=== PATIENT | male | born 1955 | race Caucasian/White ===

== ENCOUNTER 2022-02-13 15:36 | Outpatient (REF) | payer MEDICARE, BC, SELFPAY ==
[2022-02-13 17:13] LABS: SARS PCR* Negative SARS-CoV-2 (Negative)
== END 2022-02-13 15:37 | disposition home or self-care (01) ==
LOC: NPINS 15:36
PROVIDERS: PCP Physician Assistant; Visit Provider Ophthalmology
DX: Z11.52 Encounter for screening for COVID-19 (principal)
CPT/HCPCS: 87635

== ENCOUNTER 2022-02-15 10:09 | Day surgery (SDC) | payer MEDICARE, BC, SELFPAY ==
[2022-02-15 10:37] VITALS: BP 154/92; PULSE 112; RESP 16; TEMP 36.6; O2SAT 92; BMI 31.1
[2022-02-15] MEDS: KETOROLAC OPHTH 0.5% 1 DROP EYE-LEFT ×3 (10:45→11:00)
[2022-02-15] MEDS: TETRACAINE 0.5% OPHTH 1 DROP EYE-LEFT (10:45)
[2022-02-15] MEDS: SODIUM CHLORIDE 0.9 % (FLUSH) 10 ML SYRINGE IVF (11:00)
[2022-02-15] MEDS: TETRACAINE 0.5% OPHTH 2 DROP EYE-LEFT (11:53)
[2022-02-15] MEDS: BALANCED SALT IRRIG SOLN 15 ML EYE-LEFT (11:53)
[2022-02-15] MEDS: BRIMONIDINE TARTRATE 0.2% OPHTH 1 DROP EYE-LEFT (12:13)
--- NOTE | 2022-02-15 12:20 | W.ANESCHARGE ---
Anesthesia Charges Start Date/Time Anesthesia Start Date: 02/15/22 Anesthesia Start Time: 11:45 Stop Date/Time Anesthesia Stop Date: 02/15/22 Anesthesia Stop Time: 12:19 Summary Emergency: No
--- NOTE | 2022-02-15 12:25 | PM.PROC ---
Procedure Note Date Seen: 02/15/22 Will [facility] bill your pro fee for this procedure?: No Procedure: NAME OF PROCEDURE Petar phacoemulsification, right eye, with posterior chamber lens implant. PREOPERATIVE DIAGNOSIS Nuclear sclerotic cortical combined cataract, right eye. POSTOPERATIVE DIAGNOSIS Nuclear sclerotic cortical combined cataract, right eye. INDICATIONS FOR PROCEDURE The patient has noted that his vision in the right eye is failing. Severity 7/10. Unable to correct with glasses/contact lenses; has disabling night glare when driving, difficulty reading. Because of this, the patient elected to proceed with surgical repair. I have explained the risks, benefits, alternative treatments to the patient including possible loss of the eye under correction, over correction, need for more surgery. The patient understands, accepts, and elects to proceed with surgical repair. PROCEDURE The right eye was dilated with a combination 1% Mydriacyl, 2.5% phenylephrine with topical Ocufen and Vigamox applied to the corneal surface. The patient was brought to the main operating room where under IV sedation, after pausing to identify the correct patient, correct intraoperative lens, power 15.5 diopters, the right eye was prepped and draped in usual sterile fashion for intraocular surgery. A lid speculum was placed and a paracentesis created at 12 o'clock. The chamber was filled with OVD and entered temporally with a keratome. A continuous tear capsulotomy was performed. The nucleus was hydrodissected and emulsified with local anesthetic and emulsified in a chop technique in the capsular bag. Residual cortex was cleaned. The capsule was clear. At this point, ZCBOO 15.5 diopter posterior chamber lens implant was injected into the capsular bag and was well centered. Residual OVD was cleaned from behind the implant from the capsular bag. The incision hydrated and noted to be leak free. Topical Alphagan, pilocarpine, and Vigamox were applied to the corneal surface and the patient returned to recovery in good condition having tolerated the procedure well. CONDITION ON DISCHARGE Satisfactory. Surgeon: Ben Thompson MD
--- NOTE | 2022-02-15 12:26 | W.ANESCHARGE ---
Anesthesia Charges Start Date/Time Anesthesia Start Date: 02/15/22 Anesthesia Start Time: 11:45 Stop Date/Time Anesthesia Stop Date: 02/15/22 Anesthesia Stop Time: 12:19 Summary Emergency: No
[2022-02-15 12:30] VITALS: BP 134/91; PULSE 72; RESP 18; TEMP 36.6; O2SAT 98
--- NOTE | 2022-02-15 13:46 | SUR.PHASEII ---
Per Dr. Thompson, patient is following up with Dr. Tomlinson. Post-op eye drops given per Dr. Tomlinson orders.
== END 2022-02-15 12:58 | disposition home or self-care (01) ==
LOC: OR 10:11
PROVIDERS: PCP Physician Assistant; Visit Provider Ophthalmology
PROC: (CPT 66984; principal; 2022-02-15 11:30)
DX: H25.811 Combined forms of age-related cataract, right eye (principal)
CPT/HCPCS: 66984; 00142; A9270; J2250; J3010; S0020; V2632

== ENCOUNTER 2022-03-15 10:09 | Day surgery (SDC) | payer MEDICARE, BC, SELFPAY ==
[2022-03-15] MEDS: TETRACAINE 0.5% OPHTH 1 DROP EYE-RIGHT (10:30)
[2022-03-15] MEDS: KETOROLAC OPHTH 0.5% 1 DROP EYE-RIGHT ×3 (10:30→10:40)
[2022-03-15 10:38] VITALS: BMI 30.7
[2022-03-15 10:50] VITALS: BP 160/87; PULSE 93; RESP 18; TEMP 36.6; O2SAT 97
[2022-03-15] MEDS: SODIUM CHLORIDE 0.9 % (FLUSH) 10 ML SYRINGE IVF (10:52)
--- NOTE | 2022-03-15 11:00 | SUR.PREOP ---
Pt covid test negative from yesterday brought test for RN to see
[2022-03-15] MEDS: TETRACAINE 0.5% OPHTH 2 DROP EYE-RIGHT (11:40)
[2022-03-15] MEDS: BALANCED SALT IRRIG SOLN 15 ML EYE-RIGHT (11:43)
[2022-03-15] MEDS: BRIMONIDINE TARTRATE 0.2% OPHTH 1 DROP EYE-RIGHT (11:55)
[2022-03-15 11:59] VITALS: BP 127/76; PULSE 67; RESP 16; TEMP 36.6; O2SAT 95
--- NOTE | 2022-03-15 12:00 | W.ANESCHARGE ---
Anesthesia Charges Start Date/Time Anesthesia Start Date: 03/15/22 Anesthesia Start Time: 11:35 Stop Date/Time Anesthesia Stop Date: 03/15/22 Anesthesia Stop Time: 12:02 Summary Emergency: No
--- NOTE | 2022-03-15 12:02 | PM.PROC ---
Procedure Note Date Seen: 03/15/22 Will [facility] bill your pro fee for this procedure?: No Procedure: NAME OF PROCEDURE Petar phacoemulsification, right eye, with posterior chamber lens implant. PREOPERATIVE DIAGNOSIS Nuclear sclerotic cortical combined cataract, right eye. POSTOPERATIVE DIAGNOSIS Nuclear sclerotic cortical combined cataract, right eye. INDICATIONS FOR PROCEDURE The patient has noted that his vision in the right eye is failing. Severity 7/10. Unable to correct with glasses/contact lenses; has disabling night glare when driving, difficulty reading. Because of this, the patient elected to proceed with surgical repair. I have explained the risks, benefits, alternative treatments to the patient including possible loss of the eye under correction, over correction, need for more surgery. The patient understands, accepts, and elects to proceed with surgical repair. PROCEDURE The right eye was dilated with a combination 1% Mydriacyl, 2.5% phenylephrine with topical Ocufen and Vigamox applied to the corneal surface. The patient was brought to the main operating room where under IV sedation, after pausing to identify the correct patient, correct intraoperative lens, power 17.0 diopters, the right eye was prepped and draped in usual sterile fashion for intraocular surgery. A lid speculum was placed and a paracentesis created at 12 o'clock. The chamber was filled with OVD and entered temporally with a keratome. A continuous tear capsulotomy was performed. The nucleus was hydrodissected and emulsified with local anesthetic and emulsified in a chop technique in the capsular bag. Residual cortex was cleaned. The capsule was clear. At this point, ZCBOO 17.0 diopter posterior chamber lens implant was injected into the capsular bag and was well centered. Residual OVD was cleaned from behind the implant from the capsular bag. The incision hydrated and noted to be leak free. Topical Alphagan, pilocarpine, and Vigamox were applied to the corneal surface and the patient returned to recovery in good condition having tolerated the procedure well. CONDITION ON DISCHARGE Satisfactory. Surgeon: Ben Thompson MD
--- NOTE | 2022-03-15 12:10 | W.ANESCHARGE ---
Anesthesia Charges Start Date/Time Anesthesia Start Date: 03/15/22 Anesthesia Start Time: 11:35 Stop Date/Time Anesthesia Stop Date: 03/15/22 Anesthesia Stop Time: 12:02 Summary Emergency: No
== END 2022-03-15 12:38 | disposition home or self-care (01) ==
PROVIDERS: PCP Physician Assistant; Visit Provider Ophthalmology
PROC: (CPT 66984; principal; 2022-03-15 11:30)
DX: H25.11 Age-related nuclear cataract, right eye (principal)
CPT/HCPCS: 66984; 00142; A9270; J2250; J3010; S0020; V2632

== ENCOUNTER 2023-01-09 16:15 | Emergency (ER) | payer MEDICARE, BC, SELFPAY ==
[2023-01-09 16:19] VITALS: BP 178/99; PULSE 102; RESP 22; TEMP 37.1; O2SAT 97; BMI 29.7
--- NOTE | 2023-01-09 16:45 | CRLHL7_ITS ---
For Patients: As a result of the Century Cures Act, medical imaging exams and procedure reports are released immediately into your electronic medical record. You may view this report before your referring provider. If you have questions, please contact your health care provider. INDICATION: Bilateral lower extremity edema. TECHNIQUE: Ultrasound venous duplex bilateral lower extremity. Compression venous exam was performed using serrano-scale, color Doppler, and spectral Doppler analysis. COMPARISON: None. FINDINGS: Deep veins: Sonographic imaging demonstrates the bilateral common femoral, deep femoral, superficial femoral, popliteal, posterior tibial, and peroneal veins to be fully compressible with normal color Doppler blood flow. Superficial veins: Greater saphenous veins are fully compressible. No popliteal cyst. IMPRESSION: No deep venous thrombosis in the evaluated veins of the bilateral lower extremities. Dictated by Akil Martinez MD @ 01/09/2023 6:26:16 PM (Electronically Signed)
--- NOTE | 2023-01-09 16:55 | ED.GENADULT ---
HPI - General Adult General Date Seen: 01/09/23 Chief complaint: Lower Extremity Swelling Stated complaint: swollen ankles/calves Time Seen by Provider: 01/09/23 16:34 Source: patient Mode of arrival: ambulatory Limitations: no limitations History of Present Illness HPI narrative: Patient is a 67-year-old here at the [facility] for evaluation of lower extremity swelling. He tells me that yesterday he noted some soreness in his calves when he was walking, he says he walks 1-3 miles a day. He thought it was perhaps because it was so high yesterday. Today he noted onset of swelling in both legs. He has not had any breathing difficulties. Denies chest pain. He has not had fevers. He has no history of swelling in his legs before. He does tell me that for the past year he has been being seen for what sounds like neutropenia and anemia as well as elevated liver function test. He says he had a bone marrow biopsy which did not show evidence of cancer. He has been on folate replacement as he was told that his folate was low. He does have a history of heavy alcohol use for many many years, he says a month ago when he looked all of this up he saw at that alcohol was a common denominator between the elevated liver tests and the low blood counts, so he quit drinking cold turkey. He quit smoking many years ago. He also has a history of cocaine use, not currently using. He does not have a history of prior heart failure or blood clots. He does have a history of bladder cancer. Related Data Home Medications Medication Instructions Recorded Confirmed atorvastatin 20 mg tablet (Lipitor) 20 mg PO QPM 12/13/21 01/09/23 doxazosin 4 mg tablet (Cardura) 4 mg PO DAILY 12/13/21 01/09/23 epinephrine 0.3 mg/0.3 mL 0.3 ml IM Q5-15M PRN 12/13/21 01/09/23 injection, auto-injector (EpiPen) catheter 14 Fr-16 (Self-Cath) 01/09/23 01/09/23 folic acid 1 mg tablet 1 mg PO DAILY 01/09/23 01/09/23 omeprazole 40 mg capsule,delayed 40 mg PO DAILY 01/09/23 01/09/23 release Previous Rx's Medication Instructions Recorded cephalexin 500 mg capsule 500 mg PO QID #28 caps 01/09/23 furosemide 20 mg tablet 20 mg PO DAILY #4 tabs 01/09/23 Allergies Allergy/AdvReac Type Severity Reaction Status Date / Time bee venom protein (honey bee) Allergy Severe Difficulty Verified 01/09/23 16:28 Breathing ciprofloxacin Allergy Unknown Verified 01/09/23 16:28 Review of Systems Status of ROS: Reports: 10 or more systems reviewed and unremarkable except as noted in History and below [facility] Medical History Other urethral stricture, male, unspecified site ?N35.819 - Other urethral stricture, male, unspecified site (ICD-10) Urethral stricture ?N35.919 - Unspecified urethral stricture, male, unspecified site (ICD-10) Bladder cancer ?C67.9 - Malignant neoplasm of bladder, unspecified (ICD-10) Essential (primary) hypertension ?I10 - Essential (primary) hypertension (ICD-10) BPH (benign prostatic hyperplasia) ?N40.0 - Benign prostatic hyperplasia without lower urinary tract symptoms (ICD-10) Surgical History S/P wisdom tooth extraction ?Z98.818 - Other dental procedure status (ICD-10) S/P tonsillectomy ?Z90.89 - Acquired absence of other organs (ICD-10) Social History Smoking Status: Former smoker What tobacco products do you use: cigarettes Smoking quit date/years: <= 15 years ago Do you use any of these nicotine containing products: Vaping Products How often do you have a drink containing alcohol: monthly or less Alcohol type: beer, wine and hard liquor How many standard drinks containing alcohol do you have on a typical day: 3 or 4 How often do you have six or more drinks on one occasion: Less than monthly AUDIT-C Alcohol total score: 3 Non-prescribed substance use: marijuana (any form) Non-prescribed substance use details: THC Gummy every night to help sleep Caffeine: Yes (rarely) Exam Narrative: Exam Narrative: Vital signs as noted above. In general, an alert, nontoxic male. Breathing easily. Head: Normocephalic, atraumatic. Eyes: Pupils are equal reactive. Extraocular movements are full. Conjunctivae are normal. ENT: Mucous membranes are moist. Very poor dentition with multiple missing teeth. Neck: Supple without lymphadenopathy. No stridor. Heart: Regular rate and rhythm. No obvious murmur the heart sounds are distant. Lungs: Clear bilaterally. No increased work of breathing, crackles or wheezes. Breath sounds somewhat decreased, possibly related to body habitus. Abdomen: Soft and nontender. Obese. Extremities: He has [id number]-lurkjzby edema noted in bilateral lower extremities, pitting edema in both shins. Distal pulses intact. No calf tenderness. Of the left foot there is some erythema laterally. A little bit of erythema on the anterior michelle. No tenderness or significant warmth. Neurologic: Patient is alert and oriented to person and place. Speech is fluent. Face is symmetric. Moves all extremities equally. Affect: Normal. Skin: Warm and dry. Well perfused. Const: Vital Signs, click to edit/add: Vital Signs - 24 hr 01/09/23 16:19 01/09/23 18:22 Temperature 98.7 F Pulse Rate [Pulse Oximeter] 102 H 79 Respiratory Rate 22 Blood Pressure [Ri ght Upper Arm] 178/99 H 173/90 H Pulse Oximetry 97 Oxygen Delivery Me thod Room Air Documenting provider has reviewed patient's vital signs: yes Course Course Hospital Course: Will go ahead and check an ultrasound given lack of history of any prior lower extremity edema. Evaluate blood counts, liver function, kidney function, BNP. Workup here is pretty unremarkable. His CBC shows near normal hemoglobin and white cell count. Platelets remained somewhat low. LFTs are normal today. D-dimer was normal for age at 0.6. Bilateral lower extremity Dopplers read as negative by Radiology. Creatinine was normal, CRP was less than 0.5, BNP was 370. Troponin was 0.01. EKG by my review showed a sinus bradycardia, ventricular rate of 59 beats per minute. Normal ST segments, normal T-waves. In the absence of specific findings, discussed we could use a little diuretic for few days, use compression socks, elevate legs. He has this little bit of erythema on the left which may just be from dependent edema, but cannot rule out early cellulitis. Will treat conservatively with Keflex. Recommend primary care follow-up in a few days for recheck. Return at any time for worsening. Vital Signs Vital signs: Initial Vital Signs Temperature 98.7 F 01/09/23 16:19 Temperature Source Temporal Artery Scan 01/09/23 16:19 Pulse Rate 102 H 01/09/23 16:19 Pulse Rhythm Regular 01/09/23 16:19 Respiratory Rate 22 01/09/23 16:19 Blood Pressure 178/99 H 01/09/23 16:19 Blood Pressure Mean 125 H 01/09/23 16:19 Blood Pressure Position Sitting 01/09/23 16:19 Pulse Oximetry 97 01/09/23 16:19 Oxygen Delivery Method Room Air 01/09/23 16:19 Vital Signs Temperature 98.7 F 01/09/23 16:19 Pulse Rate 102 H 01/09/23 16:19 Respiratory Rate 22 01/09/23 16:19 Blood Pressure 178/99 H 01/09/23 16:19 Pulse Oximetry 97 01/09/23 16:19 Oxygen Delivery Method Room Air 01/09/23 16:19 Temperature 98.7 F 01/09/23 16:19 Pulse Rate 79 01/09/23 18:22 Respiratory Rate 22 01/09/23 16:19 Blood Pressure 173/90 H 01/09/23 18:22 Pulse Oximetry 97 01/09/23 16:19 Oxygen Delivery Method Room Air 01/09/23 16:19 Medical Decision Making Lab Data Labs: Lab Results 01/09/23 01/09/23 Range/Units 16:45 16:58 WBC 4.48 L (4.50-11.00) K/uL RBC 3.75 L (4.30-5.90) m/uL Hgb 13.0 L (13.5-17.5) gm/dL Hct 38.2 (37.0-53.0) % MCV 102 H (80-100) fL MCH 35 H (26-34) pg MCHC 34 (32-36) gm/dL RDW Coeff of Vivi 12.4 (11.5-15.5) % Plt Count 118 L (140-440) K/uL Neut % (Auto) 66.9 (42.0-72.0) % Lymph % (Auto) 21.7 (20-44) % [place] % (Auto) 9.8 (0.0-11.0) % Eos % (Auto) 0.7 (0.0-7.0) % Baso % (Auto) 0.2 (0.0-3.0) % Neut # (Auto) 3.00 (1.7-7.0) K/uL Lymph # (Auto) 1.00 (0.90-2.90) K/uL [place] # (Auto) 0.40 (0.00-0.90) K/UL Eos # (Auto) 0.00 (0.00-0.50) K/uL Baso # (Auto) 0.00 (0.00-0.30) K/uL Abs Immat Gran (auto) 0.00 (0.00-0.30) K/uL Imm/Tot Granulo (auto) 0.7 % INR 1.02 (0.91-1.10) D-Dimer Quant (PE/DVT) 0.60 H (0.00-0.50) ug/ml Sodium 137 (135-149) mmol/L Potassium 3.6 (3.6-5.1) mmol/L Chloride 105 (96-114) mmol/L Carbon Dioxide 27 (20-32) mmol/L Anion Gap 5 L (7-15) mEq/L BUN 7 (7-30) mg/dL Creatinine 0.8 (0.5-1.5) mg/dL Estimated Creat Clear 70.70 Estimated GFR 96 ml/min Glucose 105 (60-115) mg/dL Calcium 8.3 L (8.4-10.6) mg/dL Total Bilirubin 0.9 (0.1-1.5) mg/dL Direct Bilirubin 0.1 (0.0-0.5) mg/dL AST 25 (12-35) U/L ALT 15 (4-50) U/L Alkaline Phosphatase 64 (40-150) U/L C-Reactive Protein < 0.5 L (0.5-1.0) mg/dL NT-Pro-B Natriuret Pep 370 pg/mL Total Protein 6.2 (6.0-8.3) g/dL Albumin 3.4 (3.3-5.0) g/dL POC Troponin I 0.01 (0.01-0.04) ng/ml Discharge Plan Discharge Clinical Impression: Bilateral edema of lower extremity Patient Disposition: Home, Self-Care Condition: Stable Instructions: Cellulitis (ED), Leg Edema (ED) Additional Instructions: Medications as prescribed. Primary care follow-up later this week for recheck. Return for worsening or new symptoms. Elevate legs as much as possible, consider compression stockings. Prescriptions: New cephalexin 500 mg capsule 500 mg PO QID Qty: 28 0RF furosemide 20 mg tablet 20 mg PO DAILY Qty: 4 2RF No Action omeprazole 40 mg capsule,delayed release(DR/EC) 40 mg PO DAILY folic acid 1 mg tablet 1 mg PO DAILY (DME) Self-Cath 14-16 Fr- [facility] [place] MISCELLANEOUS Patient Comments: Cath every other day to keep stricture open.* atorvastatin [Lipitor] 20 mg tablet 20 mg PO QPM doxazosin [Cardura] 4 mg tablet 4 mg PO DAILY epinephrine [EpiPen] 0.3 mg/0.3 mL auto-injector 0.3 ml IM Q5-15M PRN Rx Instructions: do not exceed 3 doses per episode Follow Up/Referrals: Vivi Cruz PA-C [Primary Care Provider] - Stand Alone Forms: [employer] Info Instructions
[2023-01-09 17:12] LABS: Troponin, Point-of-Care* 0.01 ng/ml (0.01-0.04)
[2023-01-09 17:34] LABS: Albumin* 3.4 g/dL (3.3-5.0); Basophils Percent Auto 0.2 % (0.0-3.0); Chloride* 105 mmol/L (96-114); Eosinophils Percent Auto 0.7 % (0.0-7.0); Hematocrit 38.2 % (37.0-53.0); Immature Granulocytes Pct Auto 0.7 %; Lymphocytes Percent Auto 21.7 % (20-44); Mean Corpuscular HGB Conc 34 gm/dL (32-36); Mean Corpuscular Hemoglobin 35 pg (26-34); Mean Corpuscular Volume 102 fL (80-100); Monocytes Percent Auto 9.8 % (0.0-11.0); Neutrophils Percent Auto 66.9 % (42.0-72.0); Platelet Count* 118 K/uL (140-440); RDW Coefficient of Variation % 12.4 % (11.5-15.5); Red Blood Count 3.75 m/uL (4.30-5.90); Sodium* 137 mmol/L (135-149); White Blood Count* 4.48 K/uL (4.50-11.00)
[2023-01-09 17:35] LABS: Potassium* 3.6 mmol/L (3.6-5.1)
[2023-01-09 17:37] LABS: Creatinine* 0.8 mg/dL (0.5-1.5); Estimated Glomerular Filt Rate 96 ml/min
[2023-01-09 17:38] LABS: Alanine Aminotransferase* 15 U/L (4-50); Alkaline Phosphatase* 64 U/L (40-150); Anion Gap 5 mEq/L (7-15); Aspartate Amino Transferase* 25 U/L (12-35); Bilirubin Direct* 0.1 mg/dL (0.0-0.5); Bilirubin Total* 0.9 mg/dL (0.1-1.5); Blood Urea Nitrogen* 7 mg/dL (7-30); Calcium* 8.3 mg/dL (8.4-10.6); Carbon Dioxide* 27 mmol/L (20-32); Glucose* 105 mg/dL (60-115); Total Protein* 6.2 g/dL (6.0-8.3)
[2023-01-09 17:41] LABS: Slide Review Reflex No
[2023-01-09 17:43] LABS: C Reactive Protein* < 0.5 mg/dL (0.5-1.0)
[2023-01-09 17:50] LABS: NT Pro B Type NatriureticPept* 370 pg/mL
[2023-01-09 18:01] LABS: INR 1.02 (0.91-1.10)
[2023-01-09 18:22] VITALS: BP 173/90; PULSE 79
== END 2023-01-09 18:22 | disposition home or self-care (01) ==
PROVIDERS: Emergency Provider Emergency Medicine; PCP Student in an Organized Health Care Education/Training Program
DX: R60.9 Edema, unspecified (principal)
CPT/HCPCS: 36415; 80048; 80076; 83880; 84484; 85025; 85379; 85610; 86140; 93005; 93970; 99284; 99285

== ENCOUNTER 2023-04-23 07:21 | Outpatient (CLI) | payer MEDICARE, BC, SELFPAY ==
--- NOTE | 2023-04-23 08:53 | W.ANESCHARGE ---
Anesthesia Charges Start Date/Time Anesthesia Start Date: 04/23/23 Anesthesia Start Time: 08:14 Stop Date/Time Anesthesia Stop Date: 04/23/23 Anesthesia Stop Time: 08:50
--- NOTE | 2023-04-23 10:38 | W.ANESCHARGE ---
Anesthesia Charges Start Date/Time Anesthesia Start Date: 04/23/23 Anesthesia Start Time: 08:14 Stop Date/Time Anesthesia Stop Date: 04/23/23 Anesthesia Stop Time: 08:50
== END 2023-04-23 07:22 | disposition home or self-care (01) ==
LOC: OP CLINIC 07:22
PROVIDERS: PCP Student in an Organized Health Care Education/Training Program; Visit Provider Internal Medicine Gastroenterology
DX: K63.5 Polyp of colon (principal); K57.30 Diverticulosis of large intestine without perforation or abscess without bleeding; Z86.010 Personal history of colon polyps
CPT/HCPCS: 00811; 45385; 88305; J2704

== ENCOUNTER 2023-07-04 12:21 | Emergency (ER) | payer MEDICARE, BC, SELFPAY ==
[2023-07-04] VITALS (17 sets, daily range): BP systolic 128–147; BP diastolic 73–99; PULSE 59–72; RESP 22; TEMP 36.4; O2SAT 95–100; BMI 28.7
--- NOTE | 2023-07-04 12:54 | XR_ITS ---
INDICATION: CHEST PAIN. COMPARISON: NONE. TECHNIQUE: TWO VIEWS CHEST. FINDINGS: LUNGS ARE CLEAR. NO INFILTRATE OR EDEMA. NO EFFUSION OR PNEUMOTHORAX. MILD DEGENERATIVE CHANGES. CARDIAC SILHOUETTE NOT ENLARGED. IMPRESSION: NO ACUTE FINDINGS.
--- OUTSIDE RECORDS SUMMARY | 2023-07-04 13:05 | XMS_ITS | Data Portability ---
Author Name Unknown Address [address] [place] [address] Phone [phone] Organization [facility] Address [address] [facility] [address] [facility] [place] [address] Assessment No assessment recorded. Plan of Treatment Reminders Order Date Submit Date Provider Last Modified By Organization Details Last Modified Time Details Appointments None recorded. Lab urinalysis , dipstick 2022 [address], [address] [place] [address], [phone], 3 17:03:52 urinalysis , dipstick [address] [facility], [address] [place] [address], [address], [place], [address], 2 10:52:40 Referral None recorded. Procedures None recorded. Surgeries None recorded. Imaging None recorded. Medication Orders None recorded. Patient TargetsNo targets recorded. Patient InstructionsNo instructions recorded. Reason for Referral None Reported. Results Created Date Observation Date Name Description Value Unit Range Abnormal Flag LastModifiedBy Organization Detail LastModifiedTime 12/08/19 22 12/07/2021 urina lysis , dipst ick pH-Status 5.5 Not Available [address] [place] [address], [address], 12/07/2021 10:51:16 12/08/19 22 12/07/2021 urina lysis , dipst ick Nitrates-Sta tus negati ve Not Available [address], [place], [place], [address], 12/07/2021 10:51:16 12/08/19 22 12/07/2021 urina lysis , dipst ick Blood-Status Trace Not Available [facility] [address], [place], [place], [address], 12/07/2021 10:51:16 12/08/19 22 12/07/2021 urina lysis , dipst ick Leuko-Status Negati ve Not Available [facility], [place], [address], 12/07/2021 10:51:16 02/01/20 23 01/31/2023 urina lysis , dipst ick pH-Status 6.0 Not Available [address], [place], [address], 01/31/2023 16:52:22 02/01/20 23 01/31/2023 urina lysis , dipst ick Nitrates-Sta tus negati ve Not Available [address], [place], [address], 01/31/2023 16:52:22 02/01/20 23 01/31/2023 urina lysis , dipst ick Blood-Status Trace Not Available [address], [place], [address], 01/31/2023 16:52:22 02/01/20 23 01/31/2023 urina lysis , dipst ick Leuko-Status Negati ve Not Available [facility], [place], [address], 01/31/2023 16:52:22 02/01/20 23 01/31/2023 urina lysis , dipst ick Specimen Type Voided Not Available [facility] [address], [place], [address], 01/31/2023 16:52:22 12/09/19 22 12/07/2021 bladd er scan (PROC ) No observ ation record ed. BARCODE Not Available 12/08/2021 17:14:39 Result Notes None recorded. Problems Name Status Onset Date Resolution Date Notes Provider Name and Address Organization Details Recorded Time Malignant tumor of urinary bladder Active 02/01/20 23 Bladder cancer dx of 11/03/13- Ta lesion (high grade) involved left trigone/UO. Recurrence 12/15/13, 05/04/14, 10/01/14. Last bladder bx Jan 2015 was negative. Magdy Oquendo MD [address] [place] [address],[address], [place], [address] , [facility] 01/31/2023 17:03:54 Urethral stricture Active 02/01/20 23 penile and bulbar. dilates to 16F with the cysto exam. Magdy Oquendo MD [address] [place] [address],[facility] [address], [place], [address] , [facility] 01/31/2023 17:01:02 Problem Notes None recorded. Procedures Surgical History Date Name Laterality Status Provider Name and Address Organization Details Recorded Time 3 Cystoscopy- male completed Magdy Oquendo MD [address] [place] [address],[facility] [address], [place], [address], [facility] 01/31/2023 17:03:12 3 Bladder Scan completed Magdy Oquendo MD [address] [place] [address],[facility] [address], [place], [address], [facility] 01/31/2023 16:47:43 2 Cystoscopy with urethral dilation completed Magdy Oquendo MD [address] [place] [address],[facility] [address], [place], [address], [facility] 12/07/2021 12:22:55 2 Bladder Scan completed John garcia [facility] 12/07/2021 11:44:49 2 Colonoscopy completed Magdy Oquendo MD [address] [facility],[address], [place], [address], [facility] 12/07/2021 11:00:04 Imaging Results Imaging Date Name Status LastModified by Organiz ation Details LastModified Time 12/07/2021 bladder scan (PROC) completed BARCODE Information not available 12/08/2021 17:14:39 Procedure Notes None recorded. Medical Equipment None Reported. Allergies Allergen ID Allergen Name Allergen Category Reaction Reaction Severity Criticality Documentation Date Start Date Code Code System Note Provider Name and Address Organization Details Recorded Time 016807 Substance with sulfonami de structure and antibacte rial mechanism of action (substanc e) medicatio n other moderate low 12/07/2021 13913 8003 SNOMED Achil lies tende rness Magdy Oquendo MD [address] [facility],[address], [place], [address], [facility] 10:56:41 Medications Name Sig Start Date Stop Date Status Note LastModified by Organization Details LastModified Time atorvastatin 20 mg tablet TAKE ONE TABLET BY MOUTH ONE TIME DAILY AT BEDTIME* active Not Available Not Available No t Available omeprazole 40 mg capsule,delay ed release Take 1 Capsule (40 mg) by mouth once daily before a meal* active Not Available Not Available No t Available ketorolac 0.5 % eye drops INSTILL 1 DROP INTO THE LEFT EYE FOUR TIMES A DAY STARTING TWO DAYS BEFORE SURGERY. USE UNTIL GONE active Not Available Not Available No t Available prednisolone acetate 1 % eye drops,suspens ion INSTILL 1 DROP INTO THE LEFT EYE FOUR TIMES A DAY STARTING THE DAY OF SURGERY FOR TWO WEEKS THEN USE TWICE DAILY FOR TWO WEEKS active Not Available Not Available No t Available cephalexin 500 mg capsule TAKE ONE CAPSULE BY MOUTH FOUR TIMES DAILY* active Not Available Not Available No t Available polymyxin B sulfate 10,000 unit-trimetho prim 1 mg/mL eye drops INSTILL 1 DROP INTO RIGHT EYE EVERY OTHER HOUR FOR 2 DAYS, THEN INSTILL 1 DROP FOUR TIMES A DAY FOR 5 DAYS, THEN STOP active Not Available Not Available No t Available doxazosin 4 mg tablet TAKE ONE TABLET BY MOUTH ONE TIME DAILY AT BEDTIME* active Not Available Not Available No t Available folic acid 1 mg tablet TAKE ONE TABLET BY MOUTH ONE TIME DAILY* active Not Available Not Available No t Available furosemide 20 mg tablet TAKE ONE TABLET BY MOUTH IN THE MORNING* active Not Available Not Available No t Available epinephrine 0.3 mg/0.3 mL injection, auto-injector INJECT 1 PEN IN THE MUSCLE ONE TIME DIRECTED active Not Available Not Available No t Available moxifloxacin 0.5 % eye drops INSTILL 1 DROP INTO THE LEFT EYE FOUR TIMES A DAY STARTING TWO DAYS BEFORE SURGERY. USE UNTIL GONE active Not Available Not Available No t Available Self-Cath 14 Fr-16 Cath every other day to keep stricture open.* active Not Available Not Available No t Available Vitals Date Recorded Body height Body mass index (BMI) Body weight Provider Name and Address Organization Details Last Updated DateTime 12/07/2021 175.26 cm 31 kg/m2 62442.4 g Magdy Oquendo MD [address] [place] [address], [phone] [place] [address] Urology 12/07/2021 10:55:46 Date Recorded Body height Body mass index (BMI) Body weight Provider Name and Address Organization Details Last Updated DateTime 01/31/2023 175.26 cm 29.5 kg/m2 93958.47 g Magdy Oquendo MD [address] [place] [address],[address] [address] [place] [address] Urology 01/31/2023 16:47:08 Social History Question Answer Notes LastModified by Organizat ion Details LastModified Time Tobacco Smoking Status Former Smoker quit 2015 Magdy Oquendo MD [address] [place] [address], [address], [facility] 12/07/2021 10:59:05 What Is Your Level Of Alcohol Consumption? Moderate Information not available 12/07/2021 What Is Your Level Of Caffeine Consumption? Occasional Information not available 12/07/2021 Are You Currently Employed? No Information not available 12/07/2021 When Did You Quit Smoking? 6-10yearssince lastcigarette Information not available 12/07/2021 Race White Information no t available 12/07/2021 Ethnicity Not /Latin o Information not available 12/07/2021 Preferred Language Slovenian Information not available 12/07/2021 Recreational Drug Use No Information not available 12/07/2021 Could You Be ? No Information not available 12/07/2021 What Was The Date Of Your Most Recent Tobacco Screening? 01/31/2023 Information not available 01/31/2023 What Is Your Relationship Status? Information not available 12/07/2021 Are You Sexually Active? No Information not available 12/07/2021 Do You Use Any Illicit Or Recreational Drugs? No Information not available 12/07/2021 Has Tobacco Cessation Counseling Been Provided? No Information not available 12/07/2021 Sex: Male Functional Status None recorded. Mental Status None recorded. Family History Relationship Description Onset Age of this Age Resolved Age Notes Father Family history of ca rdiac disorder Father Renal failure syndrome Father Malignant tumor of lung Medical History Condition Response Other N High Blood Pressure Y Kidney Stones N Lung Disease N Depression N GERD/Acid Reflux N Sexually Transmitted Infection N Diabetes N Bleeding Disorder N Cancer Y High Cholesterol Y Heart Disease N Immunizations Vaccine Type Date Status Provider Name and Address Organization Details Recorded Time influenza, injectable, quadrivalent 02/20/2020 completed Benita Allar null, [facility] 02/20/2023 10:24:35 influenza, injectable, quadrivalent 02/27/2019 [facility] 10:24:35 influenza, injectable, quadrivalent 03/06/2017 [facility] 10:24:36 zoster recombinant 11/13/2022 [facility] 10:24:36 COVID-19, mRNA, LNP-S, PF, 30 mcg/0.3 mL dose 08/24/2020 completed Benita Allar null, [facility] 02/20/2023 10:24:36 COVID-19, mRNA, LNP-S, PF, 30 mcg/0.3 mL dose 09/14/2020 completed Benita Allar null, [facility] 02/20/2023 10:24:36 COVID-19, mRNA, LNP-S, PF, 30 mcg/0.3 mL dose 05/12/2021 completed Benita Allar null, [facility] 02/20/2023 10:24:36 Pneumococcal conjugate PCV20, polysaccharide [id number] conjugate, adjuvant, PF 11/13/2022 completed Benita Allar null, [facility] 02/20/2023 10:24:36 COVID-19, mRNA, LNP-S, PF, 30 mcg/0.3 mL dose, marlon-sucrose 09/20/2021 completed Benita Allar null, [facility] 02/20/2023 10:24:36 COVID-19, mRNA, LNP-S, bivalent, PF, 30 mcg/0.3 mL dose 08/25/2022 completed Benita Allar null, [facility] 02/20/2023 10:24:36 influenza, unspecified formulation 01/26/2018 completed Benita Allar null, [facility] 02/20/2023 10:24:36 Tdap 09/20/2021 completed Benita Allar null, [facility] 02/20/2023 10:24:36 Tdap 05/17/2010 completed Benita Allar null, [facility] 02/20/2023 10:24:36 zoster live 10/09/2013 completed Benita Allar null, [facility] 02/20/2023 10:24:36 Influenza, seasonal, injectable 05/22/2011 completed Benita Allar null, [facility] 02/20/2023 10:24:36 Influenza, seasonal, injectable 03/25/2014 completed Benita Allar null, [facility] 02/20/2023 10:24:36 Influenza, seasonal, injectable 05/17/2010 completed Benita Allar null, [facility] 02/20/2023 10:24:36 Hep B, adult 10/09/2013 completed Benita Allar null, [facility] 02/20/2023 10:24:36 influenza, injectable, quadrivalent, preservative free 01/26/2015 completed Benita Allar null, [facility] 02/20/2023 10:24:36 influenza, injectable, quadrivalent, preservative free 01/28/2016 completed Benita Allar null, [facility] 02/20/2023 10:24:36 influenza, injectable, quadrivalent, preservative free 02/24/2021 completed [place] [facility] 02/20/2023 10:24:36 Hep A-Hep B 07/16/2013 completed [place] [facility] 02/20/2023 10:24:36 Hep A-Hep B 01/26/2015 completed Benita garcia [facility] 02/20/2023 10:24:36 Past Encounters Encounter ID Performer Location Encounter Start Date Encounter Closed Date Diagnosis/Indication [id number] Magdy Oquendo MD [facility] [address] [place] [address] 12/07/2021 10:43:53 12/09/2021 14:37:41 Malignant tumor of urinary bladder Urethral stricture [id number] Magdy Oquendo MD [facility] [address] [place] [address] 01/31/2023 16:08:38 02/10/2023 11:58:12 Malignant tumor of urinary bladder Urethral stricture Health Concerns Section Related Observation LastModified by Organization Detai ls LastModified Time None Recorded Concern Status LastModified by Organization Details LastModified Time None Recorded Advance Directives Directive None Recorded Payers Encounter Date Sequence Insurance Name Policy Number Policy Duong Covered Member ID Duong Member ID Guarantor Name 01/31/2023 1 [place] [id number] Jonnathan Dao [id number] Jonnathan Dao 12/07/2021 1 [place] 3 Jonnathan Dao [id number] Jonnathan Dao 12/07/2021 2 [place] [employer] Jonnathan Dao [id number] Jonnathan Dao Notes Date Note Type Note Provider Name and Address Organization Details Recorded Time 12/07/2021 text/html HPI Notes: 63 yo male with H/O urethral stricture (mid-urethra) and superficial (high grade) bladder cancer - dx on 11/03/13 - Ta lesion (high grade) involved Left trigone / UO. He had recurrences on 12/15/13, 05/04/14, and 10/01/14. His last bladder bx (02/01/15) was negative. He currently self- catheterizes with 14 Fr catheter every other day to keep his urethral stricture patent. His la t visit was . Magdy Oquendo MD [address] [place] [address],[address], [place], [address], [facility] 12/07/2021 15:17:23 01/31/2023 text/html HPI Notes: 67yo male here for f/u on urethral stricture (mid urethra) and superficial (high grade) bladder cancer. Bladder cancer dx of 11/03/13- Ta lesion (high grade) involved left trigone/UO. Recurrence 12/15/13, 05/04/14, 10/01/14. Last bladder bx Jan 2015 was negative. Tortorelis in the past. Currently self catheterizes with 14F every other day to keep stricture patent. Last cysto/dilation was 12/07/21- neg for bladder cancer recurrence Magdy Oquendo MD [address] [facility],[address], [place], [address], [facility] 01/31/2023 17:04:08
--- OUTSIDE RECORDS SUMMARY | 2023-07-04 13:06 | XMS_ITS | Clinical Summary ---
Author Name Unknown Organization [facility] Address [place], [place] [address] Care Team Providers Care Flame Gouger Name Role Phone Wong Katz MD Unavailable [phone] Shadia Breaux Primary Care Provider [phone] Allergies Active Allergy Reactions Criticality Noted Date Comments Hymenoptera Allergenic Extract Dyspnea,Edema 02/17/2009 Ciprofloxacin Other - Describe In Comment Field 09/04/2013 Tendonitis Medications Medication Sig Dispensed Refills Start Date End Date Status atorvastatin (LIPITOR) 20 mg tabletIndications:H yperlipidemia, unspecified hyperlipidemia type Take 1 Tablet (20 mg) by mouth at bedtime. 90 Tablet 3 3 Active doxazosin (CARDURA) 4 mg tabletIndications:H ypertension goal BP (blood pressure) < 140/90,Benign prostatic hyperplasia, unspecified whether lower urinary tract symptoms present Take 1 Tablet (4 mg) by mouth at bedtime. 90 Tablet 3 3 Active EPINEPHrine (EpiPen) 0.3 mg/0.3 mL auto-injectorIndica tions:Bee sting allergy Inject 0.3 mg intramuscular one time if needed for Allergic Reaction. 1 Each 0 3 Active Catheter (Self-Cath) 14-16 Fr- miscIndications:H/O urethral stricture,Benign prostatic hyperplasia with urinary obstruction,Maligna nt neoplasm of urinary bladder, unspecified site (HC) Cath every other day to keep stricture open 30 Each 6 3 Active omeprazole (PRILOSEC) 40 mg Delayed-Release capsuleIndications: Gastroesophageal reflux disease without esophagitis Take 1 Capsule (40 mg) by mouth once daily before a meal. 90 Capsule 3 3 Active Graduated Compression StockingsIndication s:Mild peripheral edema For personal use. Length: calf Strength: 20-30 mmHg Circumference in cm: please measure patient at pharmacy 1 Packet 0 3 Active melatonin 10 mg tab Take 10 mg by mouth at bedtime. Not taking 0 3 Active furosemide (LASIX) 20 mg tabletIndications:M ild peripheral edema Take 0.5 Tablets (10 mg) by mouth every morning. Dose decrease 06/08/23 (see telephone encounter) 0 4 Active furosemide (LASIX) 20 mg tabletIndications:M ild peripheral edema Take 1 Tablet (20 mg) by mouth every morning. 90 Tablet 2 3 06/08/19 24 Discontinu ed(*Medica tion adjustment ) Active Problems Problem Noted Date Diagnosed Date Thrombocytopenia 06/03/2023 Last Assessment & Plan: Chart update only. COLE Martinez .................... 06/03/2023 10:38 AM Malignant tumor of urinary bladder 01/31/2023 Overview: Bladder cancer dx of 11/03/13- Ta lesion (high grade) involved left trigone/UO. Recurrence 12/15/13, 05/04/14, 10/01/14. Last bladder bx Jan 2015 was negative. Urethral stricture 01/31/2023 Overview: penile and bulbar. dilates to 16F with the cysto exam. Colon polyp 11/25/2021 Overview: Colonoscopy 11/2021 multiple large TA, repeat in 6 months with propofol Colonoscopy 04/2023 4-TA, repeat in 3 years, propofol Other urethral stricture, male, unspecified site 11/27/2018 Urethral stricture 08/23/2015 Bladder cancer 04/28/2014 Last Assessment & Plan: Chart update only. COLE Martinez .................... 06/03/2023 10:38 AM Hypertension goal BP (blood pressure) < 140/90 0 09/04/2013 BPH (benign prostatic hypertrophy) 07/16/2013 Encounters Date Type Department Care Team Description 07/04/2023 Nurse Triage [facility] [address] [place] [address] Shadia Breaux PA Chest Pain 06/08/2023 Telephone [facility] [address] [place] [address] Shadia Breaux PA Medication Management (furosemide (LASIX) 20 mg tablet /) 05/29/2023 7:25 AM ONCOLOGY RADIATION PHYSICIAN Office Visit [facility] [address] [place] [address] Shadia Breaux PA Edema (bilateral in both legs follow up- ) 05/29/2023 Travel 05/09/2023 9:45 AM ONCOLOGY RADIATION PHYSICIAN Office Visit [facility] [place] [facility] [address] [place] [address] Princess Landrum MD Follow Up (Thrombocytopenia ) 05/09/2023 Travel 05/02/2023 7:10 AM ONCOLOGY RADIATION PHYSICIAN Orders Only [facility] [address] [place] [address] Lab, [facility] 05/02/2023 Travel 04/23/2023 7:15 AM ONCOLOGY RADIATION PHYSICIAN Procedure Only [facility] at [facility] [address] [place] [address] Zach Krueger MD 04/23/2023 Orders Only [facility] Scanner 1 scan: (1-Ord) [facility] 04/23/2023 Lab Requisition [facility] [phone] Zach Krueger MD 04/23/2023 Travel 04/20/2023 12:39 PM ONCOLOGY RADIATION PHYSICIAN - 04/20/2023 11:59 PM ONCOLOGY RADIATION PHYSICIAN Hospital Encounter [facility] [address] [place] [address] Shadia Breaux PA Bilateral lower extremity edema 04/20/2023 Travel 04/10/2023 4:05 PM ONCOLOGY RADIATION PHYSICIAN Preop Visit [facility] [address] [facility] [place] [address] Eva Romero MD Pre-Op Exam (04/23/2023, Dr Krueger, [facility], Colonoscopy) 04/10/2023 Travel 04/06/2023 Orders Only [facility] [address] [facility] [place] [address] Zach Krueger MD <No scans attached> 04/06/2023 Orders Only [facility] [address] [facility] [place] [address] Zach Krueger MD <No scans attached> from Last 3 Months Immunizations Name Administration Dates Next Due AMB INFLUENZA IIV3 (AGE 65+ YRS) PF (Flu Clinic Only) 02/08/2023 COVID-19 vaccine ([employer]Bio NTech 30mcg/0.3mL) 12YO+ ANTONIO-SUCROSE PF, MDV 09/20/2021 COVID-19 vaccine (Pfizer-Bio NTech 30mcg/0.3mL) PF, MDV 05/12/2021,09/14/2020,08/24/2020 HepA-HepB (Twinrix) 01/26/2015,07/16/2013 Hepatitis B (Adult) 10/09/2013 Influenza Virus, Unspecified 01/26/2018 Influenza, High-dose Quadriv alent Inactivated 02/08/2023 Influenza, IIV3 (Age >=3 years) 03/25/2014,05/22,05/17/2010 Influenza, IIV4 02/24/2021,01/28/2016,01/26/2015 Influenza, IIV4 (=>6mos) MDV 02/20/2020, 02/27/2019,01/29/2018,01/27,03/06/2017 Pneumococcal Conj 20-valent (Prevnar 20) 11/13/2022 RSV, Recombinant ADJ Reconst ituted (Arexvy 120MCG/0.5mL) 02/08/2023 Tdap 09/20/2021,05/17/2010 Zoster (Shingrix-RZV, recombinant) 02/08/2023, Zoster (Zostavax-ZVL, live) 10/09/2013 Family History Medical History Relation Name Comments Cancer Father lung Genitourinary Disease Father on kid lisa dialysis Heart Disease Father [place] x 2 Diabetes Maternal Grandmother Diabetes Maternal Uncle Good Health Mother early dementia Anesthesia Problem No Family History Blood Disease No Family History Cancer-colon No Family History Cancer-prostate No Family History Relation Name Status Comments Brother (Age 5) Cerebral Pa lsy Father Alive Maternal Grandmother Maternal Uncle Mother Alive Social History Tobacco Use Types Packs/Day Years Used Date Smoking Tobacco: Former Cigarettes 0.8 43 0 10/08/1968 - 10/09/2011 Smokeless Tobacco: Never Tobacco Cessation:Counseling Given: Not Answered Alcohol Use Standard Drinks/Week Comments Not Currently 14 (1 standard drink = 0.6 oz pure alcohol) 2-3 beers per day-quit 11/2022 PHQ-2 Answer Date Recorded PHQ-2 TOTAL SCORE 0 11/13/2022 Social Connections Answer Date Recorded Frequency of Communication with Friends and Fami ly Not on file 09/22/2022 Financial Resource Strain Answer Date R ecorded Difficulty of Paying Living Expenses 3 09/20/2021 Difficulty of Paying Living Expenses Not on file 09/20/2021 Food Insecurity Answer Date Recorded Worried About Running Out of Food in the Last Ye ar 1 09/20/2021 Transportation Needs Answer Date Record ed Lack of Transportation (Medical) 1 09/20/2021 Housing Stability Answer Date Recorded Unable to Pay for Housing in the Last Year 1 09/20/2021 Sex and Gender Information Value Date Recorded Sex Assigned at Not on file Gender Identity Not on file Sexual Orientation Not on file Obstetrics History Last Filed Vital Signs Vital Sign Reading Time Taken Comments Blood Pressure 127/75 05/29/2023 7:31 AM ONCOLOGY RADIATION PHYSICIAN Pulse 71 05/29/2023 7:31 AM ONCOLOGY RADIATION PHYSICIAN Temperature 36.9 ??C (98.5 ??F) 05/09/2023 9:38 AM CS T Respiratory Rate 14 05/09/2023 9:38 AM ONCOLOGY RADIATION PHYSICIAN Oxygen Saturation 97% 05/29/2023 7:31 AM ONCOLOGY RADIATION PHYSICIAN Inhaled Oxygen Concentration - - Weight 91.4 kg (201 lb 9.6 oz) 05/29/2023 7:31 A M ONCOLOGY RADIATION PHYSICIAN Height 176 cm (5' 9.29) 04/10/2023 4:15 PM ONCOLOGY RADIATION PHYSICIAN Body Mass Index 29.52 04/10/2023 4:15 PM ONCOLOGY RADIATION PHYSICIAN Plan of Treatment Health Maintenance Due Date Last Done Comments COVID-19 vaccine series ( season) 2023 03/07/2023, 08/25/2022, 09/20/2021, Additional history exists Medicare Wellness for age 65+ 11/14/2023 11/13/2022, 09/20/[address] (for lung CA) ag e 50-80 11/15/2023 11/14/2022, 10/04/2021, 11/06/2018, Additional history exists Depression screening for age 12+ 11/17/2023 11/16/2022, 11/15/2022, 11/13/2022, Additional history exists BMI (ht and wt on same day) for age 18+ 04/10/2024 04/10/2023, 01/12/2023, 11/13/2022, Additional history exists Colonoscopy through age 75 04/23/202604/23, 04/23/2023, 04/23/2023, Additional history exists Lipids for age 45-75 11/14/2027 11/13/2022, 09/20/2021, 11/06/2018, Additional history exists Tetanus booster 09/21/2031 09/20/2021, 05/17/2010 Tdap Completed 09/20/2021, 05/17/2010 AAA screening age 65-74 Completed 10/03/2021 Pneumococcal series for age 65+ Completed Hepatitis C screening for ag e 18-79 Completed 12/15/2022, 09/20/2021 Influenza for age 65+ Completed 02/08/2023 , 02/08/2023, 02/24/2021, Additional history exists Zoster (shingles) series for age 50+ Completed 02/08/2023, 11/13/2022, 10/09/2013 Procedures Procedure Name Priority Date/Time Associated Diagnosis Comments PERIPHERAL BLD MORPHOLOGY Routine 05/02/2023 7:19 AM ONCOLOGY RADIATION PHYSICIAN Thrombocytopenia (HC) CBC WITH AUTO DIFFERENTIAL Routine 05/02/2023 7:19 AM ONCOLOGY RADIATION PHYSICIAN Thrombocytopenia (HC) FOLIC ACID Routine 05/02/2023 7:19 AM ONCOLOGY RADIATION PHYSICIAN Thrombocytopenia (HC) RETICULOCYTES Routine 05/02/2023 7:19 AM ONCOLOGY RADIATION PHYSICIAN Thrombocytopenia (HC) HEPATIC FUNCTION PANEL Routine 7:19 AM ONCOLOGY RADIATION PHYSICIAN Thrombocytopenia (HC) BASIC METABOLIC PANEL Routine 05/02/2023 7:19 AM ONCOLOGY RADIATION PHYSICIAN Thrombocytopenia (HC) CBC WITH AUTO DIFFERENTIAL Routine 05/02/2023 7:19 AM ONCOLOGY RADIATION PHYSICIAN Thrombocytopenia (HC) LAB TRACKING EVENT Routine 04/23/2023 8: 55 AM ONCOLOGY RADIATION PHYSICIAN PATH TISSUE EXAM Routine 04/23/2023 8:55 AM ONCOLOGY RADIATION PHYSICIAN COLONOSCOPY SCREENING Routine 04/23/2023 8:03 AM ONCOLOGY RADIATION PHYSICIAN History of colon polyps SCAN-COLONOSCOPY 04/23/2023 12:0 0 AM ONCOLOGY RADIATION PHYSICIAN ECHO TTE COMPLETE WO CONTRAST Routine 04/20/2023 1:28 PM ONCOLOGY RADIATION PHYSICIAN Bilateral lower extremity edema PROTEIN/CREAT RATIO,URINE Routine 04/10/2023 5:07 PM ONCOLOGY RADIATION PHYSICIAN Bilateral leg edema UA W/ SEDIMENT EXAM REFLEXED PER CRITERIA Routine 04/10/2023 5:07 PM ONCOLOGY RADIATION PHYSICIAN Bilateral leg edema CBC WITH AUTO DIFFERENTIAL Routine 04/10/2023 5:03 PM ONCOLOGY RADIATION PHYSICIAN Thrombocytopenia (HC) PROTIME-INR Routine 04/10/2023 5:03 PM ONCOLOGY RADIATION PHYSICIAN Pre-op exam Thrombocytopenia (HC) CBC WITH AUTO DIFFERENTIAL Routine 04/10/2023 5:03 PM ONCOLOGY RADIATION PHYSICIAN Thrombocytopenia (HC) COMP METABOLIC PANEL Routine 04/10/2023 5:03 PM ONCOLOGY RADIATION PHYSICIAN Bilateral leg edema from Last 3 Months Results * (ABNORMAL) CBC WITH AUTO DIFFERENTIAL (05/02/2023 7:19 AM ONCOLOGY RADIATION PHYSICIAN) Only the most recent of2 resultswithin the time period is included. WHITE BLOOD COUNT 5.8 4.5 - 11.0 thou/cu mm 05/02/2023 7:25 AM ONCOLOGY RADIATION PHYSICIAN [facility] RED BLOOD COUNT 4.60 4.30 - 5.90 mil/cu mm 05/02/2023 7:[address] [facility] HEMOGLOBIN 14.7 13.5 - 17.5 g/dL 05/02/2023 7:[address] [facility] HEMATOCRIT 41.8 37.0 - 53.0 % 05/02/2023 7:[address] [facility] MCV 91 80 - 100 fL 05/02/2023 7:[address] [facility] MCH 32.0 26.0 - 34.0 pg 05/02/2023 7:[address] [facility] MCHC 35.2 32.0 - 36.0 g/dL 05/02/2023 7:[address] [facility] RDW 13.1 11.5 - 15.5 % 05/02/2023 7:[address] [facility] PLATELET COUNT 122(L) 140 - 440 thou/cu mm 05/02/2023 7:[address] [facility] MPV 12.4(H) 6.5 - 11.0 fL 05/02/2023 7:[address] [facility] % NEUT 56.5 % 05/02/2023 7:[address] [facility] % LYMPH 28.0 % 05/02/2023 7:[address] [facility] % MONO 12.9 % 05/02/2023 7:[address] [facility] % EOS 2.4 % 05/02/2023 7:[address] [facility] % BASO 0.2 % 05/02/2023 7:25 AM ONCOLOGY RADIATION PHYSICIAN [facility] ABSOLUTE NEUTROPHILS 3.3 1.7 - 7.0 thou/cu mm 05/02/2023 7:25 AM ONCOLOGY RADIATION PHYSICIAN [facility] ABSOLUTE LYMPHOCYTES 1.6 0.9 - 2.9 thou/cu mm 05/02/2023 7:25 AM ONCOLOGY RADIATION PHYSICIAN [facility] ABSOLUTE MONOCYTES 0.7 <0.9 thou/cu mm 05/02/2023 7:25 AM ONCOLOGY RADIATION PHYSICIAN [facility] ABSOLUTE EOSINOPHILS 0.1 <0.5 thou/cu mm 05/02/2023 7:25 AM ONCOLOGY RADIATION PHYSICIAN [facility] ABSOLUTE BASOPHILS 0.0 <0.3 thou/cu mm 05/02/2023 7:25 AM ONCOLOGY RADIATION PHYSICIAN [facility] Blood BLOOD SPECIMEN / Unknown Venipuncture / Unknown 05/02/2023 7:19 AM ONCOLOGY RADIATION PHYSICIAN 05/02/2023 7:21 AM ONCOLOGY RADIATION PHYSICIAN Narrative [facility] - 05/02/2023 7:25 AM ONCOLOGY RADIATION PHYSICIAN This procedure was originally ordered at [facility] [place] [facility]. Samantha Dunn NP HEMATOLOGY Performing Organization Address City/State/[facility] Co de Phone Number [facility] [address] [place] [address], * PERIPHERAL BLD MORPHOLOGY (05/02/2023 7:19 AM ONCOLOGY RADIATION PHYSICIAN) Case Report Special Hematology Report ? Case: [id number] ? Authorizing Provider: ??Samantha Dunn NP ? Collected: ? 05/02/2023 0719 ? Ordering Location: ? [facility] ? Received: ?05/02/2023 0721 ? [facility] ? Pathologist: ? Jin Zazueta, ? MD ? Specimen: ?Blood ? 05/06/2023 8:37 AM [facility] Final Diagnosis PERIPHERAL BLOOD: 1. Mild thrombocytopenia 2. See comment 05/06/2023 8:37 AM [facility] Comment At the time of this evaluation, the WBC is normal. The features of the thrombocytopenia are nonspecific. Thrombocytopenia may be secondary to medication, immune-mediated processes, infection (viral and bacterial, including Helicobacter pylori), heparin, splenomegaly, liver disease, and increased consumption. There is no evidence of platelet clumping. Clinical correlation is recommended. This case was also reviewed by Orquidea Ulloa MT, MS ([facility]). 05/06/2023 8:37 AM [facility] LAB[facility] Clinical Information The patient is a 68-year-old male. Pertinent clinical information: Leukopenia and thrombocytopenia. Per EPIC: Additional history includes bladder cancer 2013 with recurrence and BPH. Bone marrow biopsy 12/19/2022 ([id number]) showed a hypercellular marrow with mild erythroid and megakaryocytic hyperplasia with no apparent dysplastic or neoplastic changes. Chromosome analysis was positive for a a 45,X,-Y clone. 05/02/23 07:19 FOLIC ACID: >40.0 (H) 05/06/2023 8:37 AM [facility] LAB[facility] CBC and Differential HEMATOLOGY PARAMETERS Tested at: ??[facility] ? RESULTS ??EXPECTED VALUES WBC: ? 5.8 ?4.5-62f4422/cumm ? RBC: ? 4.6 ?4.30-5.90 mil/cumm HGB: ? 14.7 ? 13.5-17.5 gm/di ? HCT: ? 41.8 ? 37-53% ? MCV: ? 91.0 ? 80-100 fl ? NORMOCYTIC MCH: ? 32.0 ? 26-34 pg ? MCHC: ?35.2 ? 32-36 gm/dl ? NORMOCHROMIC RDW: ? 13.1 ? 11.5-15.5% ? PLT: ? 122 ?140-306t6181/uL ? DECREASED MPV: ? 12.4 ? 6.5-11 fl ? ELEVATED Retic: ?? 1.5 ?0.5-1.5% ? Differential ?Absolute (%) ?Expected (%) ?(x10*9/L) ? (x10*9/L) Neutrophils: ?3.3 (56.9) ?1.7-7.0 (42-72%) ? Lymphocytes: ?1.6 (27.6) ?0.9-2.9 (20-44%) ?? Monocytes: ?0.7 (12.1) ? <0.9 (0-11%) ? Eosinophils: ?0.1 (1.7) ?<0.5 (0-2%) ? 05/06/2023 8:37 AM [facility]- ENTRPA LABORATORY Microscopic Description The final diagnosis is based on microscopic examination of an appropriately stained blood smear. 05/06/2023 8:37 AM [facility]- [facility]PA LAB[facility] Additional Information Interpreted at [facility], Central Laboratory - [address] [place] [id number] 05/06/2023 8:37 AM [facility]- ENTRAL LABORATORY Blood BLOOD SPECIMEN / Unknown Venipuncture / Unknown 05/02/2023 7:19 AM ONCOLOGY RADIATION PHYSICIAN 05/02/2023 7:21 AM ONCOLOGY RADIATION PHYSICIAN Comment:CURRENT MEDICATIONSC urrent Outpatient Medications: ? ? atorvastatin (LIPITOR) 20 mg tablet, Take 1 Tablet (20 mg) by mouth at bedtime., Disp: 90 Tablet, Rfl: 3? ? Catheter (Self-Cath) 14-16 Fr- misc, Cath every other day to keep stricture open, Disp: 30 Each, Rfl: 6? ? cephalexin (KEFLEX) 500 mg capsule, Take 500 mg by mouth four times daily., Disp: , Rfl: ? ? doxazosin (CARDURA) 4 mg tablet, Take 1 Tablet (4 mg) by mouth at bedtime., Disp: 90 Tablet, Rfl: 3? ? EPINEPHrine (EpiPen) 0.3 mg/0.3 mL auto-injector, Inject 0.3 mg intramuscular one time if needed for Allergic Reaction., Disp: 1 Each, Rfl: 0? ? folic acid 1 mg tablet, Take 1 Tablet (1 mg) by mouth once daily., Disp: 30 Tablet, Rfl: 5? ? furosemide (LASIX) 20 mg tablet, Take 1 Tablet (20 mg) by mouth every morning., Disp: 90 Tablet, Rfl: 2? ? Graduated Compression Stockings, For personal use. Length: calf Strength: 20-30 mmHg Circumference in cm: please measure patient at pharmacy, Disp: 1 Packet, Rfl: 0? ? melatonin 1 mg tablet, Take 1 mg by mouth at bedtime., Disp: , Rfl: ? ? omeprazole (PRILOSEC) 40 mg Delayed-Release capsule, Take 1 Capsule (40 mg) by mouth once daily before a meal., Disp: 90 Capsule, Rfl: 3This procedure was originally ordered at [facility]. Samantha Dunn NP HEMATOLOGY Performing Organization Address City/State/[facility] Co de Phone Number [facility] [address] [place] [place] [address], * RETICULOCYTES (05/02/2023 7:19 AM ONCOLOGY RADIATION PHYSICIAN) RETIC% 1.5 0.5 - 1.5 % 05/02/2023 1:54 PM ONCOLOGY RADIATION PHYSICIAN [facility] RETIC (ABSOLUTE) 0.07 0.03 - 0.08 mil/cu mm 05/02/2023 1:54 PM ONCOLOGY RADIATION PHYSICIAN [facility] Blood BLOOD SPECIMEN / Unknown Venipuncture / Unknown 05/02/2023 7:19 AM ONCOLOGY RADIATION PHYSICIAN 05/02/2023 7:21 AM ONCOLOGY RADIATION PHYSICIAN Narrative [facility] - 05/02/2023 1:54 PM ONCOLOGY RADIATION PHYSICIAN This procedure was originally ordered at [facility]. Samantha Dunn NP HEMATOLOGY Performing Organization Address City/[facility] de Phone Number [facility] [address] [address], * (ABNORMAL) FOLIC ACID (05/02/2023 7:19 AM ONCOLOGY RADIATION PHYSICIAN) Pathologist [facility] FOLIC ACID >40.0(H) 4.6 - 34.8 ng/mL 05/02/2023 3:38 PM ONCOLOGY RADIATION PHYSICIAN [facility] Blood BLOOD SPECIMEN / Unknown Venipuncture / Unknown 05/02/2023 7:19 AM ONCOLOGY RADIATION PHYSICIAN 05/02/2023 7:21 AM ONCOLOGY RADIATION PHYSICIAN [facility]ATORY - 05/02/2023 3:38 PM ONCOLOGY RADIATION PHYSICIAN Biotin supplements may cause clinically significant interference for this test assay. ??If interference is suspected, it is strongly recommended that biotin is discontinued for at least one week prior to retesting. Samantha Dunn NP CHEMISTRY Performing Organization Address [facility] de Phone Number [facility] [address] [place] [address], * HEPATIC FUNCTION PANEL (05/02/2023 7:19 AM ONCOLOGY RADIATION PHYSICIAN) Pathologist [facility] ALBUMIN 4.2 4.0 - 4.9 g/dL 05/02/2023 1:54 PM ONCOLOGY RADIATION PHYSICIAN [facility] PROTEIN,TOTAL 6.1 6.0 - 8.0 g/dL 05/02/2023 1:54 PM ONCOLOGY RADIATION PHYSICIAN [facility] BILIRUBIN,TOTAL 0.6 0.0 - 1.2 mg/dL 05/02/2023 1:54 PM ONCOLOGY RADIATION PHYSICIAN [facility] BILIRUBIN,DIRECT 0.2 0.0 - 0.3 mg/dL 05/02/2023 1:54 PM ONCOLOGY RADIATION PHYSICIAN [facility] LAB[facility] BILIRUBIN,INDIRE CT 0.4 0.2 - 0.8 mg/dL 05/02/2023 1:54 PM ONCOLOGY RADIATION PHYSICIAN [facility] ALK PHOSPHATASE 66 40 - 129 IU/L 05/02/2023 1:54 PM ONCOLOGY RADIATION PHYSICIAN [facility] ALT (SGPT) 11 10 - 50 IU/L 05/02/2023 1:[address] [facility] AST (SGOT) 19 10 - 50 IU/L 05/02/2023 1:[address] [facility] Blood BLOOD SPECIMEN / Unknown Venipuncture / Unknown 05/02/2023 7:19 AM ONCOLOGY RADIATION PHYSICIAN 05/02/2023 7:21 AM ONCOLOGY RADIATION PHYSICIAN Samantha Dunn NP CHEMISTRY [facility] [address] [place] [address], * (ABNORMAL) BASIC METABOLIC PANEL (05/02/2023 7:19 AM ONCOLOGY RADIATION PHYSICIAN) SODIUM 141 136 - 145 mmol/L 05/02/2023 1:54 PM [facility] POTASSIUM 3.8 3.5 - 5.1 mmol/L 05/02/2023 1:54 PM [facility] CHLORIDE 102 98 - 107 mmol/L 05/02/2023 1:54 PM [facility] CO2,TOTAL 30(H) 22 - 29 mmol/L 05/02/2023 1:54 PM [facility] ANION GAP 9 5 - 18 05/02/2023 1:54 PM [facility] GLUCOSE 99 70 - 99 mg/dL 05/02/2023 1:54 PM [facility] CALCIUM 9.4 8.8 - 10.2 mg/dL 05/02/2023 1:54 PM [facility] BUN 13 8 - 23 mg/dL 05/02/2023 1:54 PM [facility] CREATININE 1.05 0.70 - 1.20 mg/dL 05/02/2023 1:54 PM [facility] BUN/CREAT RATIO 12 10 - 20 1:54 PM [facility] eGFR 77(L) >90 mL/min/1.7 3m2 05/02/2023 1:54 PM [facility] Comment:As of 2021, eG FR is calculated by the CKD-EPI creatinine equation without race adjustment. ??eGFR can be influenced by muscle mass, exercise, and diet. ??The reported eGFR is an estimation only and is only applicable if the renal function is stable. Blood BLOOD SPECIMEN / Unknown Venipuncture / Unknown 05/02/2023 7:19 AM ONCOLOGY RADIATION PHYSICIAN 05/02/2023 7:21 AM ONCOLOGY RADIATION PHYSICIAN Samantha Dunn [employer] CHEMISTRY Performing Organization Address [facility] de Phone Number [facility] [address] [place] [id number], * LAB TRACKING EVENT (04/23/2023 8:55 AM ONCOLOGY RADIATION PHYSICIAN) Other (Other) Client Collect / Unknown 04/23/2023 8:55 AM ONCOLOGY RADIATION PHYSICIAN 04/23/2023 9:36 PM ONCOLOGY RADIATION PHYSICIAN Zach Krueger MD LAB BILL ONLY Performing Organization Address [facility] de Phone Number [facility] [address] [place] [id number], * PATH TISSUE EXAM (04/23/2023 8:55 AM ONCOLOGY RADIATION PHYSICIAN) Case Report Pathology Report ?Case: [id number] ? Authorizing Provider: ??Zach Krueger MD ?? Collected: ? 04/23/2023 0855 ? Ordering Location: ? [facility] ?Received: ?04/24/2023 0956 ? Pathologist: ? Andrew Barton MD ? Specimens: ?? A) - Descending Colon Polyp ? B) - Sigmoid Polyp ? 04/25/2023 3:42 PM ONCOLOGY RADIATION PHYSICIAN [facility] ENTRAL LABORATORY Final Diagnosis A) COLON, SIGMOID, POLYPECTOMIES: 1. Tubular adenomas (3) 2. Negative for high grade dysplasia 3. Per the colonoscopy report: ?? a. Polyp sizes: 3 mm - 4 mm ?? b. Resection: Complete ?? c. Retrieval: Complete B) COLON, SIGMOID, POLYPECTOMIES: 1. Tubular adenoma (1), hyperplastic polyp (1) and inflammatory polyp (1) 2. Negative for high grade dysplasia 3. Per the colonoscopy report: ?? a. Polyp sizes: 3 mm - 4 mm ?? b. Resection: Complete ?? c. Retrieval: Complete 04/25/2023 3:42 PM ONCOLOGY RADIATION PHYSICIAN [facility] Comment We are aware of the patient now having at least 10 adenomatous polyps of the colon (current and prior colonoscopies). If the patient has extracolonic manifestations or a family history of cancer, consideration for a referral to a genetics specialist for possible genetic testing to evaluate for a potential polyposis syndrome (attenuated familial adenomatous polyposis or MYH polyposis in particular) is reasonable as the results may have implications for both the patient and immediate family members. Reference aSleem G, Julius S. When Should Patients Undergo Genetic Testing for Hereditary Colon Cancer Syndromes? Clin Gastroenterol Hepatol. 2018 Feb;16(2):181-183 . Epub 2016Mar 30. PMID: [id number]. 04/25/2023 3:42 PM ONCOLOGY RADIATION PHYSICIAN [facility] Clinical Information Mr. Dao is a 68 y.o. undergoing surveillance colonoscopy. Colonoscopy findings: Multiple polyps, completely removed. Sigmoid colon diverticulosis. 04/25/2023 3:42 PM ONCOLOGY RADIATION PHYSICIAN [facility] Gross Description A) Received in formalin are 3 hutchins mucosal fragments ranging from 3 mm to 7 mm in greatest dimension. ??The largest fragment is inked blue and bisected. ??The specimen is submitted entirely in 1 cassette. ??It is labeled with the patient's name and designated colon-descending . B) Received in formalin are 4 hutchins mucosal fragments ranging from 5 mm to 6 mm in greatest dimension, which are entirely submitted in one cassette. It is labeled with the patient's name and designated colon-sigmoid. Keerthi Hull 04/24/2023 10:02 AM 04/25/2023 3:42 PM ONCOLOGY RADIATION PHYSICIAN [facility] Microscopic Description The final diagnosis is based on microscopic examination of appropriate sections of all specimens. 04/25/2023 3:42 PM ONCOLOGY RADIATION PHYSICIAN [facility] Additional Information Interpreted at [facility], Central Laboratory - [address] [facility] [address] [id number] 04/25/2023 3:42 PM ONCOLOGY RADIATION PHYSICIAN [facility] Other (Descending Colon Polyp) 04/23/2023 8:55 AM ONCOLOGY RADIATION PHYSICIAN 04/24/2023 9:56 AM ONCOLOGY RADIATION PHYSICIAN Specimen (specimen) (Sigmoid Polyp) 04/23/2023 8:55 AM ONCOLOGY RADIATION PHYSICIAN 04/24/2023 9:56 AM ONCOLOGY RADIATION PHYSICIAN Zach Krueger MD PATHOLOGY/[facility]TOLOG [facility] [address] [place] [address], * SCAN-COLONOSCOPY (04/23/2023 12:00 AM ONCOLOGY RADIATION PHYSICIAN) Scanner OTHER * ECHO TTE COMPLETE WO CONTRAST (04/20/2023 1:28 PM ONCOLOGY RADIATION PHYSICIAN) EJECTION FRACTION 55-60% PROSOLV Anatomical Region Laterality Modality Ultrasound 04/20/2023 12:4 2 PM ONCOLOGY RADIATION PHYSICIAN Narrative 04/20/2023 4:52 PM ONCOLOGY RADIATION PHYSICIAN [address], [place] [address] Main: ? 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 BP: 128 / 84 Weight: 203 lbs BMI: 30 kg/m?? HR: 72 Location: [facility] - Outpatient Rhythm: Normal Sinus Rhythm Procedure Components: 2D imaging, Color Doppler, Spectral Doppler Indications: Bilateral lower extremity edema Technical Quality: Fair Contrast: None Final Conclusion 1. Normal left ventricular chamber size. Normal left ventricular wall thickness. ??Normal left ventricular systolic function. Calculated left ventricular ejection fraction (modified Stone technique) is 61%. No regional wall motion abnormalities. 2. Normal right ventricular chamber size. Normal right ventricular systolic function. Right ventricular systolic pressure cannot be estimated due to inability to detect peak tricuspid regurgitation Doppler velocity. 3. No significant valvular heart disease. 4. Borderline dilated inferior vena cava with normal inspiratory collapse. 5. No pericardial effusion. 6. Normal aortic sinus of Valsalva dimension (3.2 cm). Normal ascending aorta dimension (3.5 cm). Estimated EF: 55-60% FINDINGS Left Ventricle Normal left ventricular chamber size. Normal left ventricular wall thickness. ?? Normal left ventricular systolic function. Calculated left ventricular ejection fraction (modified Stone technique) is 61%. No regional wall motion abnormalities. Diastolic Function Normal left ventricular diastolic function. Right Ventricle Normal right ventricular chamber size. Normal right ventricular systolic function. Right ventricular systolic pressure cannot be estimated due to inability to detect peak tricuspid regurgitation Doppler velocity. Left Atrium Normal left atrial size. Right Atrium Normal right atrial size. Atrial Septum No evidence of inter-atrial shunt by color flow Doppler. Aortic Valve Trileaflet aortic valve. Aortic valve sclerosis without stenosis. Mild aortic valve regurgitation. Aortic regurgitation pressure half-time (PHT) is 417 ms. Mitral Valve Normal mitral valve. No mitral valve stenosis. No mitral valve regurgitation. Tricuspid Valve Normal tricuspid valve. ??Trivial tricuspid valve regurgitation. Pulmonic Valve Pulmonary valve was not well visualized. No pulmonary valve stenosis. No pulmonary valve regurgitation. Pericardium No pericardial effusion. Aorta Normal aortic sinus of Valsalva dimension (3.2 cm). Normal ascending aorta dimension (3.5 cm). Inferior Vena Cava Borderline dilated inferior vena cava with normal inspiratory collapse. MEASUREMENTS ??(Male / Female) Normal Values 2D MEASUREMENTS AND LV FUNCTION IVS Diastolic Thickness ? 1.1 cm ?< 1.1 cm / < 1.0 cm LV Diastolic Diameter PLAX ?4.9 cm ?4.2 - 5.9 / 3.9 - 5.3 cm LV Diastolic Diameter Index ? 2.36 cm/m?? LVPW Diastolic Thickness ?0.8 cm ?< 1.1 cm / < 1.0 cm LV Systolic Diameter PLAX ? 3.3 cm LV Systolic Diameter Index ?1.59 cm/m?? LVOT Diameter ? 2.2 cm LVOT Cardiac Output ? 7.59 l/min LVOT Cardiac Index ?3.54 l/min??m?? LVOT Stroke Volume ?105 ml Stroke Volume Index ? 49.2 ml/m?? LV Ejection Fraction MOD BP ? 61 % ?>= 55 ??% LA Area 4C View ? 20.4 cm?? LA Length 4C ?5.74 cm LA Area 2C View ? 21 cm?? LA Length 2C ?5.52 cm LA Volume MOD BP ?62.4 ml LA Volume Index MOD BP ?30 ml/m?16 - 34 ml/m?? RV Diastolic Basal Diameter ? 3.3 cm RV Diastolic Mid Diameter ? 2.5 cm LV Mass ? 164 g LV Mass Index ? 77.6 g/m?? Sinuses of Valsalva Diameter(d) ?? 3.2 cm Ascending Aorta Diameter(s) ? 3.5 cm IVC Diameter Expiration ? 2.2 cm Ascending Aorta Index ? 1.68 cm/m?? M MODE TAPSE MM ?1.6 cm DIASTOLOGY Mitral E Point Velocity ? 0.638 m/sec ? 0.70 - 1.02 m/sec Mitral A Point Velocity ? 0.83 m/sec ?0.06 - 1.06 m/sec Mitral E to A Ratio ? 0.769 ? 1.1 - 2.1 MV Deceleration Time ?114 msec ?167 - 231 msec LV E' Lateral Velocity ?0.109 m/sec Mitral E to LV E' Lateral Ratio ?? 5.85 LV E' Septal Velocity ? 0.0665 m/sec Mitral E to LV E' Septal Ratio ?9.59 AORTIC VALVE AV Peak Velocity ?1.75 m/sec ?< 2.0 m/sec AV Peak Gradient ?12.2 mmHg AV Mean Gradient ?7 mmHg AV Velocity Time Integral ? 37.4 cm LVOT Peak Velocity ?1.36 m/sec LVOT Velocity Time Integral ? 27.7 cm AV Area Cont Eq vti ? 2.81 cm?? AV Area Cont Eq pk ?2.97 cm?? AV Dimensionless Index ?0.74 AI Pressure Half Time ? 417 msec TRICUSPID VALVE AND ESTIMATED PRESSURES Right Atrial Pressure ? 8 mmHg HCM DATA LVOT ANA (r) ?7.43 mmHg Aortic Root ZScore: -2.05 Ventura Carvalho MD (Electronically Signed) [facility] Accredited Site Final Date: 20 April 2023 16:52 ICD-10 Codes: R60.0 Procedure Note Ventura Carvalho MD - 04/20/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 BP: 128 / 84 Weight: 203 lbs BMI: 30 kg/m?? HR: 72 Location: [facility] - Outpatient Rhythm: Normal SinusRhythm Procedure Components: 2D imaging, Color Doppler, Spectral Doppler Indications: Bilateral lower extremity edema Technical Quality: Fair Contrast: None Final Conclusion 1. Normal left ventricular chamber size. Normal left ventricular wallthickness. Normal left ventricular systolic function. Calculated left ventricular ejection fraction (modified Stone technique) is 61%. Noregional wall motion abnormalities. 2. Normal right ventricular chamber size. Normal right ventricularsystolic function. Right ventricular systolic pressure cannot be estimated due to inability to detect peak tricuspid regurgitation Dopplervelocity. 3. No significant valvular heart disease. 4. Borderline dilated inferior vena cava with normal inspiratorycollapse. 5. No pericardial effusion. 6. Normal aortic sinus of Valsalva dimension (3.2 cm). Normal ascendingaorta dimension (3.5 cm). Estimated EF: 55-60% FINDINGS Left Ventricle Normal left ventricular chamber size. Normal leftventricular wall thickness. Normal left ventricular systolic function. Calculated left ventricular ejection fraction (modified Simpsontechnique) is 61%. No regional wall motion abnormalities. Diastolic Function Normal left ventricular diastolic function. Right Ventricle Normal right ventricular chamber size. Normal rightventricular systolic function. Right ventricular systolic pressure cannot be estimated due to inability to detect peak tricuspidregurgitation Doppler velocity. Left Atrium Normal left atrial size. Right Atrium Normal right atrial size. Atrial Septum No evidence of inter-atrial shunt by color flow Doppler. Aortic Valve Trileaflet aortic valve. Aortic valve sclerosis withoutstenosis. Mild aortic valve regurgitation. Aortic regurgitation pressure half-time (PHT) is 417 ms. Mitral Valve Normal mitral valve. No mitral valve stenosis. No mitralvalve regurgitation. Tricuspid Valve Normal tricuspid valve. Trivial tricuspid valveregurgitation. Pulmonic Valve Pulmonary valve was not well visualized. No pulmonaryvalve stenosis. No pulmonary valve regurgitation. Pericardium No pericardial effusion. Aorta Normal aortic sinus of Valsalva dimension (3.2 cm). Normalascending aorta dimension (3.5 cm). Inferior Vena Cava Borderline dilated inferior vena cava with normalinspiratory collapse. MEASUREMENTS (Male / Female) Normal Values 2D MEASUREMENTS AND LV FUNCTION IVS Diastolic Thickness 1.1 cm < 1.1 cm / < 1.0cm LV Diastolic Diameter PLAX 4.9 cm 4.2 - 5.9 / 3.9 -5.3 cm LV Diastolic Diameter Index 2.36 cm/m?? LVPW Diastolic Thickness 0.8 cm < 1.1 cm / < 1.0cm LV Systolic Diameter PLAX 3.3 cm LV Systolic Diameter Index 1.59 cm/m?? LVOT Diameter 2.2 cm LVOT Cardiac Output 7.59 l/min LVOT Cardiac Index 3.54 l/min??m?? LVOT Stroke Volume 105 ml Stroke Volume Index 49.2 ml/m?? LV Ejection Fraction MOD BP 61 % >= 55 % LA Area 4C View 20.4 cm?? LA Length 4C 5.74 cm LA Area 2C View 21 cm?? LA Length 2C 5.52 cm LA Volume MOD BP 62.4 ml LA Volume Index MOD BP 30 ml/m?? 16 - 34 ml/m?? RV Diastolic Basal Diameter 3.3 cm RV Diastolic Mid Diameter 2.5 cm LV Mass 164 g LV Mass Index 77.6 g/m?? Sinuses of Valsalva Diameter(d) 3.2 cm Ascending Aorta Diameter(s) 3.5 cm IVC Diameter Expiration 2.2 cm Ascending Aorta Index 1.68 cm/m?? M MODE TAPSE MM 1.6 cm DIASTOLOGY Mitral E Point Velocity 0.638 m/sec 0.70 - 1.02m/sec Mitral A Point Velocity 0.83 m/sec 0.06 - 1.06m/sec Mitral E to A Ratio 0.769 1.1 - 2.1 MV Deceleration Time 114 msec 167 - 231 msec LV E' Lateral Velocity 0.109 m/sec Mitral E to LV E' Lateral Ratio 5.85 LV E' Septal Velocity 0.0665 m/sec Mitral E to LV E' Septal Ratio 9.59 AORTIC VALVE AV Peak Velocity 1.75 m/sec < 2.0 m/sec AV Peak Gradient 12.2 mmHg AV Mean Gradient 7 mmHg AV Velocity Time Integral 37.4 cm LVOT Peak Velocity 1.36 m/sec LVOT Velocity Time Integral 27.7 cm AV Area Cont Eq vti 2.81 cm?? AV Area Cont Eq pk 2.97 cm?? AV Dimensionless Index 0.74 AI Pressure Half Time 417 msec TRICUSPID VALVE AND ESTIMATED PRESSURES Right Atrial Pressure 8 mmHg HCM DATA LVOT ANA (r) 7.43 mmHg Aortic Root ZScore: -2.05 Ventura Carvalho MD (Electronically Signed) [facility] Accredited Site Final Date: 20 April 2023 16:52 ICD-10 Codes: R60.0 Shadia GALVAN ECHO ORD * PROTEIN/CREAT RATIO,URINE (04/10/2023 5:07 PM ONCOLOGY RADIATION PHYSICIAN) PROTEIN QUANT,RAND URINE 10 1 - 14 mg/dL 04/11/2023 2:33 PM ONCOLOGY RADIATION PHYSICIAN [facility] CREAT,RANDOM URINE 180.0 39.0 - 259.0 mg/dL 04/11/2023 2:33 PM ONCOLOGY RADIATION PHYSICIAN [facility] PROT/CREAT RATIO,UR 0.1 <0.2 04/11/2023 2:33 PM ONCOLOGY RADIATION PHYSICIAN [facility] Urine URINE SPECIMEN / Unknown Non-Blood / Unknown 04/10/2023 5:07 PM ONCOLOGY RADIATION PHYSICIAN 04/10/2023 5:08 PM ONCOLOGY RADIATION PHYSICIAN Eva Romero MD URINE [facility] [address] [place] [address], * UA W/ SEDIMENT EXAM REFLEXED PER CRITERIA (04/10/2023 5:07 PM ONCOLOGY RADIATION PHYSICIAN) COLOR Yellow Yellow Color 04/10/2023 5:12 PM [address]OGY RADIATION PHYSIC[address] [facility] CLARITY Clear Clear Clarity 04/10/2023 5:12 PM ONCOLOGY RADIATION PHYSICIAN [facility] SPECIFIC GRAVITY,URINE 1.025 1.010, 1.015, 1.020, 1.025 04/10/2023 5:12 PM ONCOLOGY RADIATION PHYSICIAN [facility] PH,URINE 6.0 6.0, 7.0, 8.0, 5.5, 6.5, 7.5, 8.5 04/10/2023 5:12 PM ONCOLOGY RADIATION PHYSICIAN [facility] UROBILINOGEN, QUALITATIVE Normal Normal EU/dl 04/10/2023 5:12 PM ONCOLOGY RADIATION PHYSICIAN [facility] PROTEIN, URINE Negative Negative mg/dL 04/10/2023 5:12 PM ONCOLOGY RADIATION PHYSICIAN [facility] GLUCOSE, URINE Negative Negative mg/dL 04/10/2023 5:12 PM ONCOLOGY RADIATION PHYSICIAN [facility] KETONES,URINE Negative Negative mg/dL 04/10/2023 5:12 PM ONCOLOGY RADIATION PHYSICIAN [facility] BILIRUBIN,URI NE Negative Negative 04/10/2023 5:12 PM ONCOLOGY RADIATION PHYSICIAN [facility] OCCULT BLOOD,URINE Negative Negative 04/10/2023 5:12 PM ONCOLOGY RADIATION PHYSICIAN [facility] NITRITE Negative Negative 04/10/2023 5:12 PM ONCOLOGY RADIATION PHYSICIAN [facility] LEUKOCYTE ESTERASE Negative Negative 04/10/2023 5:[address] [facility] Urine URINE SPECIMEN / Unknown Non-Blood / Unknown 04/10/2023 5:07 PM ONCOLOGY RADIATION PHYSICIAN 04/10/2023 5:08 PM ONCOLOGY RADIATION PHYSICIAN Eva Romero MD URINE [facility] [address] [place] [address], * PROTIME-INR (04/10/2023 5:03 PM ONCOLOGY RADIATION PHYSICIAN) INR 1.1 <1.3 04/11/2023 1:31 PM ONCOLOGY RADIATION PHYSICIAN [facility] LAB[facility] PROTIME 11.9 10.3 - 12.3 sec 04/11/2023 1:31 PM ONCOLOGY RADIATION PHYSICIAN [facility] LABOR[facility] Blood BLOOD SPECIMEN / Unknown Venipuncture / Unknown 04/10/2023 5:03 PM ONCOLOGY RADIATION PHYSICIAN 04/10/2023 5:07 PM ONCOLOGY RADIATION PHYSICIAN Narrative [facility] - 04/11/2023 1:31 PM ONCOLOGY RADIATION PHYSICIAN ?Therapeutic Range 2.0-3.0 for most anticoagulated patients 2.5-3.5 or 4.0 for high risk patients The INR is only used for patients on stable oral anticoagulant therapy. It makes no significant contribution to the diagnosis or treatment of patients whose Protime is prolonged for other reasons. INR results are increased when heparin levels exceed 1.0 U/mL, which corresponds to an aPTT >125 seconds if the patient is on UFH. Eva Romero MD HEMATOLOGY [facility] [address] [place] [address], * (ABNORMAL) COMP METABOLIC PANEL (04/10/2023 5:03 PM ONCOLOGY RADIATION PHYSICIAN) SODIUM 141 136 - 145 mmol/L 04/11/2023 2:26 PM [facility] POTASSIUM 4.0 3.5 - 5.1 mmol/L 04/11/2023 2:[address] [facility] TR[facility] LABORAT[facility] CHLORIDE 103 98 - 107 mmol/L 04/11/2023 2:26 PM [facility] CO2,TOTAL 30(H) 22 - 29 mmol/L 04/11/2023 2:26 PM [facility] ANION GAP 8 5 - 18 04/11/2023 2:26 PM [facility] GLUCOSE 103(H) 70 - 99 mg/dL 04/11/2023 2:26 PM [facility] CALCIUM 9.3 8.8 - 10.2 mg/dL 04/11/2023 2:26 PM [facility] BUN 12 8 - 23 mg/dL 04/11/2023 2:26 PM [facility] CREATININE 1.03 0.70 - 1.20 mg/dL 04/11/2023 2:26 PM ONCOLOGY RADIATION PHYSICIAN [facility] TRAL LABORATORY BUN/CREAT RATIO 12 10 - 20 2:26 PM ONCOLOGY RADIATION PHYSICIAN [facility] LAB[facility]ORY eGFR 79(L) >90 mL/min/1.7 3m2 04/11/2023 2:26 PM ONCOLOGY RADIATION PHYSICIAN [facility] Comment:As of 2021, eG FR is calculated by the CKD-EPI creatinine equation without race adjustment. ??eGFR can be influenced by muscle mass, exercise, and diet. ??The reported eGFR is an estimation only and is only applicable if the renal function is stable. ALBUMIN 4.3 4.0 - 4.9 g/dL 04/11/2023 2:26 PM ONCOLOGY RADIATION PHYSICIAN [facility] TRAL LABORATORY PROTEIN,TOTAL 6.6 6.0 - 8.0 g/dL 04/11/2023 2:26 PM ONCOLOGY RADIATION PHYSICIAN [facility] TR[facility] LABOR[facility] BILIRUBIN,TOTAL 0.5 0.0 - 1.2 mg/dL 04/11/2023 2:26 PM ONCOLOGY RADIATION PHYSICIAN [facility] TR[facility] LABOR[facility] ALK PHOSPHATASE 54 40 - 129 IU/L 04/11/2023 2:26 PM ONCOLOGY RADIATION PHYSICIAN [facility] ALT (SGPT) 11 10 - 50 IU/L 04/11/2023 2:26 PM ONCOLOGY RADIATION PHYSICIAN [facility] AST (SGOT) 23 10 - 50 IU/L 04/11/2023 2:26 PM [facility] Blood BLOOD SPECIMEN / Unknown Venipuncture / Unknown 04/10/2023 5:03 PM ONCOLOGY RADIATION PHYSICIAN 04/10/2023 5:07 PM ONCOLOGY RADIATION PHYSICIAN Eva Romero MD CHEMISTRY [facility] [address] [place] [address], from Last 3 Months Care Teams Flame G[employer]er Relationship Specialty Start Date End Date Shadia Breaux PA [address] [place] [address] PCP - General Physician Travel Rn 11/13/22 Wong Katz MD Surgery - Urology 09/20/21
[2023-07-04 13:16] LABS: Eosinophils Absolute Auto 0.05 K/uL (0.00-0.50); Hematocrit 40.5 % (37.0-53.0); Hemoglobin* 13.7 gm/dL (13.5-17.5); Immature Granulocytes Abs Auto 0.02 K/uL (0.00-0.30); Immature Granulocytes Pct Auto 0.4 %; Lymphocytes Absolute Auto 1.05 K/uL (0.90-2.90); Lymphocytes Percent Auto 21.5 % (20-44); Mean Corpuscular HGB Conc 34 gm/dL (32-36); Mean Corpuscular Hemoglobin 31 pg (26-34); Mean Corpuscular Volume 92 fL (80-100); Monocytes Percent Auto 10.5 % (0.0-11.0); Neutrophils Absolute Auto 3.25 K/uL (1.7-7.0); Neutrophils Percent Auto 66.6 % (42.0-72.0); Platelet Count* 115 K/uL (140-440); RDW Coefficient of Variation % 12.9 % (11.5-15.5); Red Blood Count 4.41 m/uL (4.30-5.90); White Blood Count* 4.88 K/uL (4.50-11.00)
[2023-07-04 13:23] LABS: Slide Review Reflex No
--- NOTE | 2023-07-04 13:38 | ED.CHESTPAIN ---
HPI - Chest Pain General Date Seen: 07/04/23 Chief Complaint: Chest Pain Stated Complaint: chest pain Time Seen by Provider: 07/04/23 12:24 Source: patient Mode of arrival: ambulatory Limitations: no limitations History of Present Illness HPI narrative: Patient is a 68-year-old male with history of hypertension, hyperlipidemia presenting to the emergency department for left-sided chest pain. He states the pain started about 5 days ago initially felt like it was musculoskeletal in nature as it was tender to palpation. Since then he feels like the pain has gotten deeper. Describes it as a 2/10 dull pain. It does not radiate anywhere. He has never had pain like this before. The only thing he can think of that is different is 2 weeks still be started using a THC vape pen. He has been using THC edibles daily since he quit drinking back in November of 2022. He quit smoking cigarette and nicotine vapes in 2013 when he was diagnosed with bladder cancer. He had that surgically removed. No history of blood clots. No history of unilateral leg swelling. Denies shortness of breath, denies dyspnea. Denies fevers, chills, abdominal pain, headache, lightheadedness, dizziness, weakness, numbness. Related Data Home Medications Medication Instructions Recorded Confirmed atorvastatin 20 mg tablet (Lipitor) 20 mg PO QPM 12/13/21 01/09/23 doxazosin 4 mg tablet (Cardura) 4 mg PO DAILY 12/13/21 01/09/23 epinephrine 0.3 mg/0.3 mL 0.3 ml IM Q5-15M PRN 12/13/21 01/09/23 injection, auto-injector (EpiPen) catheter 14 Fr-16 (Self-Cath) 01/09/23 01/09/23 folic acid 1 mg tablet 1 mg PO DAILY 01/09/23 01/09/23 omeprazole 40 mg capsule,delayed 40 mg PO DAILY 01/09/23 01/09/23 release Previous Rx's Medication Instructions Recorded cephalexin 500 mg capsule 500 mg PO QID #28 caps 01/09/23 furosemide 20 mg tablet 20 mg PO DAILY #4 tabs 01/09/23 Allergies Allergy/AdvReac Type Severity Reaction Status Date / Time bee venom protein (honey bee) Allergy Severe Difficulty Verified 01/09/23 16:28 Breathing ciprofloxacin Allergy Unknown Verified 01/09/23 16:28 Review of Systems Status of ROS Reports: 10 or more systems reviewed and unremarkable except as noted in History and below [facility] Medical History Other urethral stricture, male, unspecified site ?N35.819 - Other urethral stricture, male, unspecified site (ICD-10) Urethral stricture ?N35.919 - Unspecified urethral stricture, male, unspecified site (ICD-10) Bladder cancer ?C67.9 - Malignant neoplasm of bladder, unspecified (ICD-10) Essential (primary) hypertension ?I10 - Essential (primary) hypertension (ICD-10) BPH (benign prostatic hyperplasia) ?N40.0 - Benign prostatic hyperplasia without lower urinary tract symptoms (ICD-10) Surgical History S/P wisdom tooth extraction ?Z98.818 - Other dental procedure status (ICD-10) S/P tonsillectomy ?Z90.89 - Acquired absence of other organs (ICD-10) Social History Smoking Status: Former smoker What tobacco products do you use: cigarettes Smoking quit date/years: <= 15 years ago Do you use any of these nicotine containing products: Vaping Products How often do you have a drink containing alcohol: monthly or less Alcohol type: beer, wine and hard liquor How many standard drinks containing alcohol do you have on a typical day: 3 or 4 How often do you have six or more drinks on one occasion: Less than monthly AUDIT-C Alcohol total score: 3 Non-prescribed substance use: marijuana (any form) Non-prescribed substance use details: THC Gummy every night to help sleep Caffeine: Yes (rarely) Exam Narrative Exam Narrative: Const: Well-nourished, Well-developed, in mild distress Eyes: PERRL, no conjunctival injection, and symmetrical lids HENT: Atraumatic external nose and ears. Moist mucous membranes. Neck: Symmetric, trachea midline, No thyromegaly. CVS: RRR, No murmurs or gallops. Peripheral pulses 2+ and equal in all extremities RESP: Unlabored respiratory effort. Clear to auscultation bilaterally. GI: Nontender/Nondistended, No rebound or guarding. MSK:Extremities w/o deformity, Normal Active ROM, chest wall nontender to palpation Skin: Warm, Dry. No rashes or lesions. Neuro: Normal Muscle tone, No focal neurological deficits. Psych: Awake, Alert, & Oriented x3. Appropriate mood and affect. Const Vital Signs, click to edit/add: Vital Signs - 24 hr 07/04/23 12:34 07/04/23 12:47 07/04/23 13:00 Temperature 97.5 F L Pulse Rate 68 70 Pulse Rate [Left Pulse Oximeter] 65 Respiratory Rate 22 Blood Pressure Blood Pressure [Right Upper Arm] 147/83 H Pulse Oximetry 97 96 96 Oxygen Delivery Method Room Air 07/04/23 13:16 07/04/23 13:17 07/04/23 13:30 Temperature Pulse Rate 72 71 67 Pulse Rate [Left Pulse Oximeter] Respiratory Rate Blood Pressure 144/99 H Blood Pressure [Right Upper Arm] Pulse Oximetry 95 98 98 Oxygen Delivery Method 07/04/23 13:32 07/04/23 13:45 07/04/23 14:00 Temperature Pulse Rate 64 64 67 Pulse Rate [Left Pulse Oximeter] Respiratory Rate Blood Pressure 128/75 Blood Pressure [Right Upper Arm] Pulse Oximetry 97 97 98 Oxygen Delivery Method 07/04/23 14:02 07/04/23 14:15 07/04/23 14:30 Temperature Pulse Rate 63 65 68 Pulse Rate [Left Pulse Oximeter] Respiratory Rate Blood Pressure 131/76 Blood Pressure [Right Upper Arm] Pulse Oximetry 97 98 98 Oxygen Delivery Method 07/04/23 14:32 07/04/23 14:33 07/04/23 14:45 Temperature Pulse Rate 60 59 L 60 Pulse Rate [Left Pulse Oximeter] Respiratory Rate Blood Pressure 136/73 Blood Pressure [Right Upper Arm] Pulse Oximetry 98 98 100 Oxygen Delivery Method 07/04/23 15:00 07/04/23 15:05 Temperature Pulse Rate 67 67 Pulse Rate [Left Pulse Oximeter] Respiratory Rate Blood Pressure Blood Pressure [Right Upper Arm] Pulse Oximetry 98 98 Oxygen Delivery Method Course Vital Signs Vital signs: Initial Vital Signs Temperature 97.5 F L 07/04/23 12:34 Temperature Source Temporal Artery Scan 07/04/23 12:34 Pulse Rate 65 07/04/23 12:34 Respiratory Rate 22 07/04/23 12:34 Blood Pressure 147/83 H 07/04/23 12:34 Blood Pressure Mean 104 07/04/23 12:34 Pulse Oximetry 97 07/04/23 12:34 Oxygen Delivery Method Room Air 07/04/23 12:34 Vital Signs Temperature 97.5 F L 07/04/23 12:34 Pulse Rate 65 07/04/23 12:34 Respiratory Rate 22 07/04/23 12:34 Blood Pressure 147/83 H 07/04/23 12:34 Pulse Oximetry 97 07/04/23 12:34 Oxygen Delivery Method Room Air 07/04/23 12:34 Temperature 97.5 F L 07/04/23 12:34 Pulse Rate 67 07/04/23 15:05 Respiratory Rate 22 07/04/23 12:34 Blood Pressure 136/73 07/04/23 14:32 Pulse Oximetry 98 07/04/23 15:05 Oxygen Delivery Method Room Air 07/04/23 12:34 MDM - Chest Pain MDM Narrative Medical decision making narrative: Patient is a 68-year-old male presenting to the emergency department for chest pain. His symptoms are all left-sided any is no dyspnea. PE seems unlikely but we will order D-dimer. Will also order chest x-ray to look for signs of pneumonia or pneumothorax. ACS is also on the differential an EKG and troponins ordered. COVID/flu/RSV test ordered. Also her BMP and CBC. Lab work all returned showing no concerning abnormalities. COVID/flu/RSV is negative. Initial troponin and repeat troponin were both 0. D-dimer within normal limits and is unlikely to be a PE. He was otherwise well and then seems very unlikely to be a or dissection. EKG showed no concerning findings. At this time I cannot say definitively was causing his chest pain but is relatively minor and I have ruled out any emergent causes. Informed to follow-up with primary care provider symptoms persist. He is agreeable to this plan Lab Data Labs: Lab Results 07/04/23 07/04/23 07/04/23 Range/Units 12:54 13:00 14:45 WBC 4.88 (4.50-11.00) K/uL RBC 4.41 (4.30-5.90) m/uL Hgb 13.7 (13.5-17.5) gm/dL Hct 40.5 (37.0-53.0) % MCV 92 (80-100) fL MCH 31 (26-34) pg MCHC 34 (32-36) gm/dL RDW Coeff of Vivi 12.9 (11.5-15.5) % Plt Count 115 L (140-440) K/uL Neut % (Auto) 66.6 (42.0-72.0) % Lymph % (Auto) 21.5 (20-44) % [place] % (Auto) 10.5 (0.0-11.0) % Eos % (Auto) 1.0 (0.0-7.0) % Baso % (Auto) 0.0 (0.0-3.0) % Neut # (Auto) 3.25 (1.7-7.0) K/uL Lymph # (Auto) 1.05 (0.90-2.90) K/uL [place] # (Auto) 0.50 (0.00-0.90) K/UL Eos # (Auto) 0.05 (0.00-0.50) K/uL Baso # (Auto) 0.00 (0.00-0.30) K/uL Abs Immat Gran (auto) 0.02 (0.00-0.30) K/uL Imm/Tot Granulo (auto) 0.4 % D-Dimer Quant (PE/DVT) 0.28 (0.00-0.50) ug/ml Sodium 140 (135-149) mmol/L Potassium 3.8 (3.6-5.1) mmol/L Chloride 106 (96-114) mmol/L Carbon Dioxide 29 (20-32) mmol/L Anion Gap 5 L (7-15) mEq/L BUN 12 (7-30) mg/dL Creatinine 0.9 (0.5-1.5) mg/dL Estimated Creat Clear 71.99 Estimated GFR 92 ml/min Glucose 127 H (60-115) mg/dL Calcium 9.1 (8.4-10.6) mg/dL SARS-CoV-2 (PCR) Negative SARS-CoV-2 (Negative) Influenza Type A (PCR) Negative PCR FLU A (Negative) Influenza Type B (PCR) Negative PCR FLU B (Negative) RSV (PCR) Negative PCR RSV (Negative) POC Troponin I 0.00 L 0.00 L (0.01-0.04) ng/ml Imaging Data Chest x-ray: Radiologist's impression: NO ACUTE FINDINGS. ECG Data Attestation: I personally reviewed and interpreted this ECG as follows: Prior ECG tracings: available for review (01/10/2023) Interpretation: Normal sinus rhythm with a rate of 71 beats per minute, normal intervals, normal axis, no ST or T-wave abnormalities. Discharge Plan Discharge Clinical Impression: Atypical chest pain Patient Disposition: Home, Self-Care Condition: Stable Instructions: Noncardiac Chest Pain (ED) Additional Instructions: If symptoms persist you can follow up with primary care provider. Return to emergency department for new or worsening symptoms Prescriptions: No Action omeprazole 40 mg capsule,delayed release(DR/EC) 40 mg PO DAILY folic acid 1 mg tablet 1 mg PO DAILY (DME) [facility] Patient Comments: Cath every other day to keep stricture open.* cephalexin 500 mg capsule 500 mg PO QID Qty: 28 0RF furosemide 20 mg tablet 20 mg PO DAILY Qty: 4 2RF atorvastatin [Lipitor] 20 mg tablet 20 mg PO QPM doxazosin [Cardura] 4 mg tablet 4 mg PO DAILY epinephrine [EpiPen] 0.3 mg/0.3 mL auto-injector 0.3 ml IM Q5-15M PRN Rx Instructions: do not exceed 3 doses per episode Follow Up/Referrals: Vivi Cruz PA-C [Primary Care Provider] - Stand Alone Forms: MyHealth Info Instructions
[2023-07-04 13:42] LABS: Chloride* 106 mmol/L (96-114); Potassium* 3.8 mmol/L (3.6-5.1); Sodium* 140 mmol/L (135-149)
[2023-07-04 13:45] LABS: Anion Gap 5 mEq/L (7-15); Blood Urea Nitrogen* 12 mg/dL (7-30); Calcium* 9.1 mg/dL (8.4-10.6); Carbon Dioxide* 29 mmol/L (20-32); Creatinine* 0.9 mg/dL (0.5-1.5); Est. Creatinine Clearance* 71.99; Estimated Glomerular Filt Rate 92 ml/min; Glucose* 127 mg/dL (60-115)
[2023-07-04 13:48] LABS: D Dimer Quantitative* 0.28 ug/ml (0.00-0.50)
[2023-07-04 14:11] LABS: PCR FLU A Negative PCR FLU A (Negative); PCR FLU B Negative PCR FLU B (Negative); PCR RSV Negative PCR RSV (Negative); SARS PCR* Negative SARS-CoV-2 (Negative)
== END 2023-07-04 15:24 | disposition home or self-care (01) ==
PROVIDERS: Emergency Provider Student in an Organized Health Care Education/Training Program; PCP Student in an Organized Health Care Education/Training Program
DX: R07.89 Other chest pain (principal)
CPT/HCPCS: 36415; 71046; 80048; 84484; 85025; 85379; 87631; 93005; 99283; 99284; 99285

== ENCOUNTER 2025-02-10 09:10 | Inpatient (IN) | payer MEDICARE, BC, SELFPAY ==
[2025-02-10] VITALS (27 sets, daily range): BP systolic 128–177; BP diastolic 71–104; PULSE 67–131; RESP 6–33; TEMP 36.7–37.1; O2SAT 94–98; BMI 35.1
--- NOTE | 2025-02-10 | CRLHL7_ITS ---
For Patients: As a result of the Century Cures Act, medical imaging exams and procedure reports are released immediately into your electronic medical record. You may view this report before your referring provider. If you have questions, please contact your health care provider. INDICATION: Acute stroke, slurred speech, left facial droop. TECHNIQUE: CTA head using intravenous contrast with bolus tracking, 3D angiographic rendering using maximum intensity projection (MIP) and images permanently archived. CTA neck using intravenous contrast with bolus tracking, 3D angiographic rendering using maximum intensity projection (MIP) and images permanently archived. FINDINGS: CTA head: There is normal opacification of the intracranial vasculature. There is no large vessel occlusion or significant intracranial stenosis. No aneurysm is identified. CTA neck: There is carotid atherosclerosis bilaterally. There is no significant carotid artery stenosis or dissection. There is no significant vertebral artery stenosis or dissection. Degenerative changes are noted in the cervical spine. IMPRESSION: No acute intracranial abnormality at CTA. No significant carotid or vertebral artery stenosis or dissection. Please note that all CT scans at this facility use dose modulation, iterative reconstruction, and/or weight-based dosing when appropriate to reduce radiation dose to as low as reasonably achievable. Dictated by Barron Sellers MD @ 02/10/2025 10:05:24 AM (Electronically Signed)
--- NOTE | 2025-02-10 | CRLHL7_ITS ---
For Patients: As a result of the Century Cures Act, medical imaging exams and procedure reports are released immediately into your electronic medical record. You may view this report before your referring provider. If you have questions, please contact your health care provider. INDICATION: Slurred speech and left facial droop TECHNIQUE: CT head without contrast. COMPARISON: None. FINDINGS: CSF spaces: Within normal limits for age. Brain parenchyma: The serrano-white differentiation is normal. No sign of mass, hemorrhage, or midline shift. Small low-density within the deep white matter. Skull base and calvarium: The visualized paranasal sinuses and mastoid air cells demonstrate no acute or significant findings. The visualized orbits are grossly unremarkable. No skull fractures. Atherosclerosis. IMPRESSION: 1. No intracranial bleed or mass effect. 2. Minimal nonspecific white matter disease, likely microangiopathy. Results called to Dr. Childers at 0950 on 02/10/2025 Please note that all CT scans at this facility use dose modulation, iterative reconstruction, and/or weight-based dosing when appropriate to reduce radiation dose to as low as reasonably achievable. Dictated by Claudy Sunshine MD @ 02/10/2025 9:51:49 AM (Electronically Signed)
--- OUTSIDE RECORDS SUMMARY | 2025-02-10 09:19 | XMS_ITS | Clinical Summary ---
Author Organization [employer] [facility] Address [address] [place] [id number] Care Team Providers Care Lithographic Artist Name Role Phone Wong Katz MD Unavailable [phone] Vivi Cruz Primary Care Provider [phone] Allergies Active Allergy Reactions Criticality Noted Date Comments Hymenoptera Allergenic Extract Dyspnea,Edema 02/17/2009 Ciprofloxacin Other - Describe In Comment Field 09/04/2013 Tendonitis Sulfa (Sulfonamide Antibiotics) Other - Describe In Comment Field Medium 01/13/2025 Substance with sulfonamide structure and antibacterial mechanism of action (substance) Medications Graduated Compression StockingsIndicati ons:Mild peripheral edema For personal use. Length: calf Strength: 20-30 mmHg Circumference in cm: please measure patient at pharmacy 1 Packet 01/20/20 23 Active omeprazole (PRILOSEC) 40 mg Delayed-Release capsuleIndication s:Gastroesophagea l reflux disease without esophagitis Take 1 Capsule (40 mg) by mouth once daily before a meal. 90 Capsule 3 01/14/20 25 Active furosemide (LASIX) 20 mg tabletIndications :Mild peripheral edema Take 0.5 Tablets (10 mg) by mouth once daily in the morning. 45 Tablet 3 01/14/20 25 Active doxazosin (CARDURA) 4 mg tabletIndications :Hypertension goal BP (blood pressure) < 140/90,Benign prostatic hyperplasia, unspecified whether lower urinary tract symptoms present Take 1 Tablet (4 mg) by mouth at bedtime. 90 Tablet 3 01/14/20 25 Active atorvastatin (LIPITOR) 20 mg tabletIndications :Mixed hyperlipidemia Take 1 Tablet (20 mg) by mouth at bedtime. 90 Tablet 3 01/14/20 25 Active EPINEPHrine (EpiPen) 0.3 mg/0.3 mL auto-injectorIndi cations:Bee sting allergy Inject 0.3 mg intramuscular one time if needed for Allergic Reaction. 1 Each 2 01/14/20 25 Active folic acid 1 mg tabletIndications :Thrombocytopenia ,Folate deficiency Take 1 Tablet (1 mg) by mouth once daily. 90 Tablet 01/17/20 25 Active atorvastatin (LIPITOR) 80 mg tabletIndications :CAD in choctaw artery Take 1 Tablet (80 mg) by mouth at bedtime. 90 Tablet 3 02/07/20 25 Active Catheter (Self-Cath) 14-16 Fr- miscIndications:H /O urethral stricture,Benign prostatic hyperplasia with urinary obstruction,Malig nant neoplasm of urinary bladder, unspecified site () Cath every other day to keep stricture open 30 Each 6 11/18/19 025 Discontin ued(*Med complete/ Regimen complete/ Level of care change) melatonin 10 mg tab Take 10 mg by mouth at bedtime. Not taking 04/10/20 025 Discontin ued(*Med complete/ Regimen complete/ Level of care change) atorvastatin (LIPITOR) 20 mg tabletIndications :Hyperlipidemia, unspecified hyperlipidemia type Take 1 Tablet (20 mg) by mouth at bedtime. 90 Tablet 3 11/16/19 24 025 Discontin ued(Reord er (E-cancel not sent)) doxazosin (CARDURA) 4 mg tabletIndications :Hypertension goal BP (blood pressure) < 140/90,Benign prostatic hyperplasia, unspecified whether lower urinary tract symptoms present Take 1 Tablet (4 mg) by mouth at bedtime. 90 Tablet 3 11/16/19 24 025 Discontin ued(Reord er (E-cancel not sent)) EPINEPHrine (EpiPen) 0.3 mg/0.3 mL auto-injectorIndi cations:Bee sting allergy Inject 0.3 mg intramuscular one time if needed for Allergic Reaction. 1 Each 2 11/16/19 24 025 Discontin ued(Reord er (E-cancel not sent)) furosemide (LASIX) 20 mg tabletIndications :Mild peripheral edema Take 0.5 Tablets (10 mg) by mouth once daily in the morning. Dose decrease 06/08/23 (see telephone encounter) 45 Tablet 3 11/16/19 24 025 Discontin ued(Reord er (E-cancel not sent)) omeprazole (PRILOSEC) 40 mg Delayed-Release capsuleIndication s:Gastroesophagea l reflux disease without esophagitis Take 1 Capsule (40 mg) by mouth once daily before a meal. 90 Capsule 3 11/16/19 24 025 Discontin ued(Reord er (E-cancel not sent)) Active Problems Problem Noted Date Diagnosed Date Thrombocytopenia 06/03/2023 Assessment & Plan (06/03/2023 10:38 AM LIBRARY AIDE): Chart update only. COLE Martinez .................... 06/03/2023 10:38 AM Malignant tumor of urinary bladder 01/31/2023 Overview (04/10/2023): Bladder cancer dx of 11/03/13- Ta lesion (high grade) involved left trigone/UO. Recurrence 12/15/13, 05/04/14, 10/01/14. Last bladder bx Jan 2015 was negative. Urethral stricture 01/31/2023 Overview (04/10/2023): penile and bulbar. dilates to 16F with the cysto exam. Colon polyp 11/25/2021 Overview (04/26/2023): Colonoscopy 11/2021 multiple large TA, repeat in 6 months with propofol Colonoscopy 04/2023 4-TA, repeat in 3 years, propofol Other urethral stricture, male, unspecified site 11/27/2018 Urethral stricture 08/23/2015 Bladder cancer 04/28/2014 Assessment & Plan (06/03/2023 10:38 AM LIBRARY AIDE): Chart update only. COLE Martinez .................... 06/03/2023 10:38 AM Hypertension goal BP (blood pressure) < 140/90 0 09/04/2013 BPH (benign prostatic hypertrophy) 07/16/2013 Encounters Date Type Department Care Team Description 02/03/2025 7:44 AM CDT - 02/03/2025 11:59 PM CDT Hospital Encounter [facility] [address] [place] [address] Vivi Cruz PA Encounter for screening for coronary artery disease 02/03/2025 Travel 01/16/[address] [address] Vivi Cruz PA Imaging 01/13/2025 7:50 AM CDT Office Visit [address] [address] Vivi Cruz PA Medicare ANNUAL (subsequent) Visit (Fasting./Weight concerns. Left knee and sore lower back. Walking Distances) 01/13/2025 Medical Messaging [address] [address] Vivi Cruz PA Message about your results 01/13/2025 Travel 01/06/2025 Telephone [facility] [address] [place] [address] Vivi Cruz PA 01/05/2025 7:30 AM CDT Ancillary Procedure [facility] [address] [place] [address] 01/05/2025 Travel from Last 3 Months Immunizations Immunization Administration Dates Next Due AMB INFLUENZA IIV3 (AGE 65+ YRS) PF (Flu Clinic Only) 02/08/2023 COVID-19 vaccine (Pfizer-Bio NTech 30mcg/0.3mL) 12YO+ ANTONIO-SUCROSE PF, MDV 09/20/2021 COVID-19 vaccine (Pfizer-Bio NTech 30mcg/0.3mL) PF, MDV 05/12/2021,09/14/2020,08/24/2020 HepA-HepB (Twinrix) 01/26/2015,07/16/2013 Hepatitis B (Adult) 10/09/2013 Influenza Virus, Unspecified 01/26/2018 Influenza, High-dose Inactivated 02/14/2024 Influenza, High-dose Quadriv alent Inactivated 02/08/2023 Influenza, [...] on kid lisa dialysis Heart Disease Father [place] x 2 Diabetes Maternal Grandmother Diabetes Maternal [...] Not Answered Alcohol Use Standard Drinks/Week Comments Yes 14 (1 standard drink = 0.6 oz pu re alcohol) 2-3 beers per day-quit 11/2022 PHQ-2 Answer Date Recorded PHQ-2 TOTAL SCORE 2 01/13/2025 Social Connections Answer Date Recorded Frequency of Communication with Friends and Fami ly 0 09/20/2021 Financial Resource Strain Answer Date R ecorded [...] Recorded Sex Assigned at Not on file Legal Sex Male 5:24 AM LIBRARY AIDE Gender Identity Not on file Sexual Orientation Not on file 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 Not on file Not on file Obstetrics History Last Filed Vital Signs Vital Sign Reading Time Taken Comments Blood Pressure 126/82 01/13/2025 8:02 AM CDT Pulse 116 01/13/2025 8:02 AM CDT Temperature 36.9 C (98.5 F) 05/09/2023 9:38 AM LIBRARY AIDE Respiratory Rate 14 05/09/2023 9:38 AM LIBRARY AIDE Oxygen Saturation 97% 01/13/2025 8:02 AM CDT Inhaled Oxygen Concentration - - Weight 107.5 kg (237 lb) 01/13/2025 8:02 AM CDT Height 176.9 cm (5' 9.65) 11/16/2023 7:11 AM CD T Body Mass Index 34.35 11/16/2023 7:11 AM CDT Plan of Treatment Health Maintenance Due Date Last Done Comments BMI (ht and wt on same day) for age 18+ 11/15/2024 11/16/2023, 04/10/2023, 01/12/2023, Additional history exists COVID-19 vaccine series ( season) 2025 09/01/2024, 02/14/2024, 11/28/2023, Additional history exists Influenza Vaccine (#1) 2025 , 02/08/2023, 02/24/2021, Additional history exists Low Dose CT (for lung CA) ag e 50-80 01/05/2026 01/05/2025, 11/16/2023, 11/14/2022, Additional history exists Depression screening for age 12+ 01/13/2026 01/13/2025, 11/16/2023, 11/16/2022, Additional history exists Medicare Wellness for age 65+ 01/14/2026, 11/16/2023, 11/13/2022, Additional history exists Colonoscopy through age 75 04/23/202604/23, 04/23/2023, 04/23/2023, Additional history exists Lipids for age 45-75 01/13/2030 01/13/2025, 12/06/2023, 11/13/2022, Additional history exists Tetanus booster 09/21/2031 09/20/2021, 05/17/2010 Hepatitis B series for 19+ Completed 01/26, 10/09/2013, 07/16/2013 AAA screening age 65-74 Completed 10/03/2021 Pneumococcal series for age 50+ Completed Hepatitis C screening for ag e 18-79 Completed 12/15/2022, 09/20/2021 RSV vaccine for adults or Completed 02/08/2023 Zoster (shingles) series for age 50+ Completed 02/08/2023, 11/13/2022, 10/09/2013 Procedures Procedure Name Priority Date/Time Associated Diagnosis Comments CT CARDIAC CALCIUM SCORE ONLY WO SINGLE READ Routine 02/03/2025 12:19 PM CDT Encounter for screening for coronary artery disease FOLIC ACID Add On 01/13/2025 9:39 AM CDT Thrombocytopenia Folate deficiency CBC WITH AUTO DIFFERENTIAL Routine 01/13/2025 9:39 AM CDT Thrombocytopenia CBC WITH AUTO DIFFERENTIAL Routine 01/13/2025 9:39 AM CDT Thrombocytopenia BASIC METABOLIC PANEL Routine 01/13/2025 9:39 AM CDT Hypertension goal BP (blood pressure) < 140/90 LIPID PANEL W REFLEX MEASURED LDL Routine 01/13/2025 9:39 AM CDT Mixed hyperlipidemia PSA TOTAL Routine 01/13/2025 9:39 AM CDT Prostate cancer screening CT CHEST SCREENING LOW DOSE WO CONTRAST Routine 01/05/2025 7:34 AM CDT Encounter for screening for lung cancer Former cigarette smoker COLONOSCOPY SCREENING Routine 04/23/2023 8:03 AM LIBRARY AIDE History of colon polyps LC HCV ANTIBODY RFX TO QUANT PCR Routine 12/15/2022 7:28 AM CDT Thrombocytopenia US ABD AORTA SCREENING Routine 10/03/2021 8:02 AM CDT Personal history of tobacco use, presenting hazards to health from Last 3 Months or Most Recently Relevant to Health Maintenance Results * CT CARDIAC CALCIUM SCORE ONLY WO SINGLE READ (02/03/2025 12:19 PM CDT) Anatomical Region Laterality Modality Computed Tomogra phy 02/03/2025 5:59 PM CDT Narrative 02/03/2025 5:59 PM CDT For Patients: As a result of the Cures Act, medical imaging exams and procedure reports are released immediately into your electronic medical record. You may view this report before your referring provider. If you have questions, please contact your health care provider. CT CARDIAC CALCIUM SCORING PATIENT HISTORY: Cardiovascular risk assessment REPORT: High-resolution, ECG-synchronized noncontrast computed tomography of the heart with attention to the coronary arteries was performed. Coronary calcification analyzed using Siemens calcium scoring software. These are the results of the evaluation: CT Calcium Scoring: This cardiac CT examination will provide you with a coronary artery calcium score. A coronary artery calcium score is a measurement of the amount of calcified plaque in the coronary arteries, the arteries that supply blood to the heart muscle. The coronary artery calcium score is calculated based on the number, size, and density of the calcified plaques in the coronary arteries. The amount of calcified coronary plaque has been shown to directly correlate with future risk for heart disease. The coronary artery calcium is a marker of how much plaque has accumulated in the gilbert of the coronary arteries. It is not a test for blockages. This test is intended to assess cardiovascular risk in patients without symptoms. It is not intended to be a test for individuals with chest pain or other possible symptoms suggestive of heart disease. If you are having chest pain or other potential cardiovascular symptoms, see your physician. Calcium Score: Left main = 2.6 Left anterior descending = 12.1 Left circumflex = 89.7 Right coronary artery = 180.4 Total calcium score = 284.8 This places the patient at the 62nd percentile for matched age and gender Assessment: - Your cardiac CT examination demonstrates plaque in the coronary arteries. - The amount of plaque in the coronary arteries directly correlates with the risk for heart attack and other coronary events (such as bypass or stenting). - As discussed above, the coronary artery calcium score is intended for risk assessment in patients without cardiovascular symptoms. If you are having chest pain or other potential cardiovascular symptoms, see your physician. Recommendations: - To lower your cardiovascular risk, we strongly recommend adherence to healthy lifestyle behaviors including: - Following a heart healthy diet focused on modest portion sizes, a high intake of fresh fruits and vegetables, whole grains, healthy fats (olive oil, nuts and seeds, avocados), and healthy proteins (unprocessed meats, fish, legumes). - Following an active lifestyle including 30-45 minutes of moderate intensity exercise 5-6 times per week. - Avoidance of tobacco products. - Cardiovascular preventive medication, including a daily aspirin and cholesterol-lowering statin medications have been shown to reduce the risk of a future heart attack and stroke, especially in individuals at higher risk for heart disease. - We recommend that individuals with calcified plaque discuss the risks and benefits of cholesterol-lowering medications, blood pressure medications, and aspirin with their primary care physician. Cholesterol-lowering medications have been shown to reduce the risk of heart attack in individuals at elevated risk, including in patients with normal cholesterol levels at baseline. - A coronary artery calcium score is not a test for blockages, it is a test for underlying plaque. An elevated calcium score is not an indication for additional testing for coronary heart disease though one may be considered based on your clinical history. The results of your coronary artery calcium score should be reviewed by your primary care provider or correspondence school instructor. - These recommendations are generalized and may not specifically apply to you as an individual. Your primary care physician is in the best position to provide advice on your care and clinical decisions should ultimately be made by you and your physician. EXTRA-CARDIAC FINDINGS: Pulmonary nodules, as demonstrated on the low-dose chest CT of 01/05/2025. As per the recommendation from that examination, continue annual screening, if eligible, with low-dose CT chest in 12 months. Please note that all CT scans at this facility use dose modulation, iterative reconstruction, and/or weight-based dosing when appropriate to reduce radiation dose to as low as reasonably achievable. Dictated by Tyron Kolb MD @ 02/03/2025 5:59:35 PM (Electronically Signed) Procedure Note Tyron Kolb MD - 02/03/2025 For Patients: As a result of the Cures Act, medical imagingexams and procedure reports are released immediately into your electronicmedical record. You may view this report before your referring provider.If you have questions, please contact your health care provider. CT CARDIAC CALCIUM SCORING PATIENT HISTORY: Cardiovascular risk assessment REPORT: High-resolution, ECG-synchronized noncontrast computed tomographyof the heart with attention to the coronary arteries was performed. Coronary calcification analyzed using Siemens calcium scoring software.These are the results of the evaluation: CT Calcium Scoring: This cardiac CT examination will provide you with acoronary artery calcium score. A coronary artery calcium score is ameasurement of the amount of calcified plaque in the coronary arteries,the arteries that supply blood to the heart muscle. The coronary arterycalcium score is calculated based on the number, size, and density of thecalcified plaques in the coronary arteries. The amount of calcifiedcoronary plaque has been shown to directly correlate with future risk forheart disease. The coronary artery calcium is a marker of how much plaque has accumulatedin the gilbert of the coronary arteries. It is not a test for blockages.This test is intended to assess cardiovascular risk in patients withoutsymptoms. It is not intended to be a test for individuals with chest painor other possible symptoms suggestive of heart disease. If you are havingchest pain or other potential cardiovascular symptoms, see yourphysician. Calcium Score: Left main = 2.6 Left anterior descending = 12.1 Left circumflex = 89.7 Right coronary artery = 180.4 Total calcium score = 284.8 This places the patient at the 62nd percentile for matched age andgender Assessment: - Your cardiac CT examination demonstrates plaque in the coronaryarteries. - The amount of plaque in the coronary arteries directly correlates withthe risk for heart attack and other coronary events (such as bypass orstenting). - As discussed above, the coronary artery calcium score is intended forrisk assessment in patients without cardiovascular symptoms. If you arehaving chest pain or other potential cardiovascular symptoms, see yourphysician. Recommendations: - To lower your cardiovascular risk, we strongly recommend adherence tohealthy lifestyle behaviors including: - Following a heart healthy diet focused on modest portion sizes, a highintake of fresh fruits and vegetables, whole grains, healthy fats (oliveoil, nuts and seeds, avocados), and healthy proteins (unprocessed meats,fish, legumes). - Following an active lifestyle including 30-45 minutes of moderateintensity exercise 5-6 times per week. - Avoidance of tobacco products. - Cardiovascular preventive medication, including a daily aspirin andcholesterol-lowering statin medications have been shown to reduce the riskof a future heart attack and stroke, especially in individuals at higherrisk for heart disease. - We recommend that individuals with calcified plaque discuss the risksand benefits of cholesterol-lowering medications, blood pressuremedications, and aspirin with their primary care physician.Cholesterol-lowering medications have been shown to reduce the risk ofheart attack in individuals at elevated risk, including in patients withnormal cholesterol levels at baseline. - A coronary artery calcium score is not a test for blockages, it is atest for underlying plaque. An elevated calcium score is not an indicationfor additional testing for coronary heart disease though one may beconsidered based on your clinical history. The results of your coronaryartery calcium score should be reviewed by your primary care provider orcardiologist. - These recommendations are generalized and may not specifically apply toyou as an individual. Your primary care physician is in the best positionto provide advice on your care and clinical decisions should ultimately bemade by you and your physician. EXTRA-CARDIAC FINDINGS: Pulmonary nodules, as demonstrated on the low-dosechest CT of 01/05/2025. As per the recommendation from that examination,continue annual screening, if eligible, with low-dose CT chest in 12months. Please note that all CT scans at this facility use dose modulation,iterative reconstruction, and/or weight-based dosing when appropriate toreduce radiation dose to as low as reasonably achievable. Dictated by Tyron Kolb MD @ 02/03/2025 5:59:35 PM (Electronically Signed) us Vivi Vida Malecha PA CT Final Res ult * (ABNORMAL) CBC WITH AUTO DIFFERENTIAL (01/13/2025 9:39 AM CDT) Pathologist [facility] [place] WHITE BLOOD CELL COUNT 5.4 3.8 - 10.8 Thousand/ uL 01/14/2025 3:30 AM CDT [facility] RED BLOOD CELL COUNT 4.41 4.20 - 5.80 Million/u L 01/14/2025 3:30 AM CDT [facility] HEMOGLOBIN 16.1 13.2 - 17.1 g/dL 01/14/2025 3:30 AM CDT [facility] HEMATOCRIT 46.8 38.5 - 50.0 % 01/14/2025 3:30 AM CDT [facility] MCV 106.1(H) 80.0 - 100.0 fL 01/14/2025 3:30 AM CDT [facility] MCH 36.5(H) 27.0 - 33.0 pg 01/14/2025 3:30 AM CDT [facility] MCHC 34.4 32.0 - 36.0 g/dL 01/14/2025 3:30 AM CDT [facility] Comment: For adults, a slight decrease in the calculated MCHC value (in the range of 30 to 32 g/dL) is most likely not clinically significant; however, it should be interpreted with caution in correlation with other red cell parameters and the patient's clinical condition. RDW 13.8 11.0 - 15.0 % 01/14/2025 3:30 AM CDT [facility] PLATELET COUNT 104(L) 140 - 400 Thousand/ uL 01/14/2025 3:30 AM CDT [facility] MPV 11.2 7.5 - 12.5 fL 01/14/2025 3:30 AM CDT [facility] NEUTROPHILS 66.7 % 01/14/2025 3:30 AM CDT [facility] LYMPHOCYTES 20.3 % 01/14/2025 3:30 AM CDT [facility] MONOCYTES 12.2 % 01/14/2025 3:30 AM CDT [facility] EOSINOPHILS 0.6 % 01/14/2025 3:30 AM CDT [facility] BASOPHILS 0.2 % 01/14/2025 3:30 AM CDT [facility] ABSOLUTE NEUTROPHILS 3602 1500 - 7800 cells/uL 01/14/2025 3:30 AM CDT [facility] ABSOLUTE LYMPHOCYTES 1096 850 - 3900 cells/uL 01/14/2025 3:30 AM CDT [facility] ABSOLUTE MONOCYTES 659 200 - 950 cells/uL 01/14/2025 3:30 AM CDT [facility] ABSOLUTE EOSINOPHILS 32 15 - 500 cells/uL 01/14/2025 3:30 AM CDT [facility] ABSOLUTE BASOPHILS 11 0 - 200 cells/uL 01/14/2025 3:30 AM CDT [facility] Blood BLOOD SPECIMEN / Unknown [facility] / Unknown 01/13/2025 9:39 AM CDT 01/13/2025 9:39 AM CDT Vivi GALVAN HEMATOLOGY Final Res ult [facility] [address] [place] [address], * LIPID PANEL W REFLEX MEASURED LDL (01/13/2025 9:39 AM CDT) Pathologist [facility] [place] CHOLESTEROL, TOTAL 144 <200 mg/dL 01/14/2025 3:01 AM CDT [facility] TRIGLYCERIDES 118 <150 mg/dL 01/14/2025 3:01 AM CDT [facility] HDL CHOLESTEROL 52 > OR = 40 mg/dL 01/14/2025 3:01 AM CDT [facility] NON HDL CHOLESTEROL 92 <130 mg/dL (calc) 01/14/2025 3:01 AM CDT [facility] Comment: For patients with diabetes plus 1 major ASCVD risk factor, treating to a non-HDL-C goal of <100 mg/dL (LDL-C of <70 mg/dL) is considered a therapeutic option. CHOL/HDLC RATIO 2.8 <5.0 (calc) 01/14/2025 3:01 AM CDT [facility] LDL-CHOLESTEROL 72 mg/dL (calc) 01/14/2025 3:01 AM CDT [facility] Comment: Reference range: <100 Desirable range <100 mg/dL for primary prevention; <70 mg/dL for patients with CHD or diabetic patients with > or = 2 CHD risk factors. LDL-C is now calculated using the Zach-Schneider calculation, which is a validated novel method providing better accuracy than the Friedewald equation in the estimation of LDL-C. Zach SS et al. BRENDAN. 2013;310(19): 2193-7751 (http://education.Bandtastic.me/faq/JKT014) Blood BLOOD SPECIMEN / Unknown [facility] / Unknown 01/13/2025 9:39 AM CDT 01/13/2025 9:39 AM CDT Vivi GALVAN CHEMISTRY Final Res ult Performing Organization Address [facility] [place] de Phone Number [employer] [address] [phone], * PSA TOTAL (DIAG OR SCREEN) (01/13/2025 9:39 AM CDT) PSA, TOTAL 2.15 < OR = 4.00 ng/mL 01/14/2025 3:01 AM CDT [employer] Comment: The total PSA value from this assay system is standardized against the WHO standard. The test result will be approximately 20% lower when compared to the equimolar-standardized total PSA (Nelson Lucas). Comparison of serial PSA results should be interpreted with this fact in mind. This test was performed using the Siemens chemiluminescent method. Values obtained from different assay methods cannot be used interchangeably. PSA levels, regardless of value, should not be interpreted as absolute evidence of the presence or absence of disease. Blood BLOOD SPECIMEN / Unknown [facility] / Unknown 01/13/2025 9:39 AM CDT 01/13/2025 9:39 AM CDT Vivi GALVAN CHEMISTRY Final Res ult Performing Organization Address [facility] de Phone Number [employer] [address] [phone], * (ABNORMAL) FOLIC ACID (01/13/2025 9:39 AM CDT) FOLATE, SERUM 2.6(L) ng/mL 01/15/2025 6:29 AM CDT [facility] Comment: Reference Range Low: <3.4 Borderline: 3.4-5.4 Normal: >5.4 Blood BLOOD SPECIMEN / Unknown [facility] / Unknown 01/13/2025 9:39 AM CDT 01/13/2025 9:39 AM CDT us Vivi GALVAN CHEMISTRY Final Res ult [facility] [address] [place] [address], * (ABNORMAL) BASIC METABOLIC PANEL (01/13/2025 9:39 AM CDT) SODIUM 141 135 - 146 mmol/L 01/14/2025 3:01 AM CDT [facility] POTASSIUM 3.6 3.5 - 5.3 mmol/L 01/14/2025 3:01 AM CDT [facility] CARBON DIOXIDE 31 20 - 32 mmol/L 01/14/2025 3:01 AM CDT [facility] GLUCOSE 117(H) 65 - 99 mg/dL 01/14/2025 3:01 AM CDT [facility] Comment: Fasting reference interval For someone without known diabetes, a glucose value between 100 and 125 mg/dL is consistent with prediabetes and should be confirmed with a follow-up test. CALCIUM 8.6 8.6 - 10.3 mg/dL 01/14/2025 3:01 AM CDT [facility] CREATININE 1.24 0.70 - 1.28 mg/dL 01/14/2025 3:01 AM CDT [facility] BUN/CREATININE RATIO SEE NOTE: 6 - 22 (calc) 01/14/2025 3:01 AM CDT [facility] Comment: Not Reported: BUN and Creatinine are within reference range. EGFR 63 > OR = 60 mL/min/1. 73m2 01/14/2025 3:01 AM CDT [facility] UREA NITROGEN (BUN) 8 7 - 25 mg/dL 01/14/2025 3:01 AM CDT [facility] ELECTROLYTE BALANCE 8 7 - 17 mmol/L (calc) 01/14/2025 3:01 AM CDT [facility] CHLORIDE 102 98 - 110 mmol/L 01/14/2025 3:01 AM CDT [facility] Blood BLOOD SPECIMEN / Unknown [facility] / Unknown 01/13/2025 9:39 AM CDT 01/13/2025 9:39 AM CDT Vivi GALVAN CHEMISTRY Final Res ult [facility] [address] [place] [address], * CT CHEST SCREENING LOW DOSE WO CONTRAST (01/05/2025 7:34 AM CDT) Anatomical Region Laterality Modality Computed Tomogra phy Impressions 01/08/2025 8:31 AM CDT Negative for lung cancer screening purposes. LUNG-RADS CATEGORY 2: Benign appearance or behavior Continue annual screening, if eligible, with low-dose CT chest in 12 months. Please note that all CT scans at this facility use dose modulation, iterative reconstruction and/or weight-based dosing when appropriate to reduce radiation dose to as low as reasonably achievable. Dictated by: Sander Roman MD @01/06/2025 2:58:11 PM/kaia Narrative 01/08/2025 8:31 AM CDT For Patients: As a result of the Cures Act, medical imaging exams and procedure reports are released immediately into your electronic medical record. You may view this report before your referring provider. If you have questions, please contact your health care provider. CT CHEST SCREENING LOW-DOSE WITHOUT CONTRAST, 01/05/2025 INDICATION: Lung cancer screening. History of smoking. TECHNIQUE: Low-dose lung cancer screening non-contrast CT chest. Dose reduction techniques were used. COMPARISON: 11/16/[address] FINDINGS: NODULES: Right middle lobe nodule measures 9.5 mm versus 8.4 mm previously. It is fairly dense at 60 Hounsfield units and should be benign. Benign calcified granuloma in the left lower lobe. No new nodules. LUNGS AND PLEURA: Normal. MEDIASTINUM: Normal. CORONARY ARTERY CALCIFICATION: Present. LIMITED UPPER ABDOMEN: Normal. MUSCULOSKELETAL: Normal. us Vivi GALVAN CT Final Res ult * SCAN-COLONOSCOPY (04/23/2023 12:00 AM LIBRARY AIDE) us Scanner OTHER Final Result * LC HCV ANTIBODY RFX TO QUANT PCR (12/15/2022 7:28 AM CDT) HCV Ab Non Reactive Non Reactive 12/19/2022 10:06 PM CDT [facility] ([facility] Blood BLOOD SPECIMEN / Unknown Venipuncture / Unknown 12/15/2022 7:28 AM CDT 12/15/2022 7:28 AM CDT Narrative [facility] ([facility] - 12/19/2022 10:06 PM CDT Performed at: [address] [place] [address] [employer] [place] [phone] Director Of Residential Services: Andre Lopez MD, Phone: [phone] us Princess Landrum MD LABORATORY Final Resu lt [facility] ([facility]) [address] [place] [id number], [place] * US ABD AORTA SCREENING [[id number]] (10/03/2021 8:02 AM CDT) Anatomical Region Laterality Modality Abdomen, AORTA Ultrasound 10/03/2021 2:01 PM CDT Impressions 10/03/2021 2:01 PM CDT No evidence of abdominal aortic aneurysm. Dictated by José Greenfield MD @ Oct 03 2021 2:01PM (Electronically Signed) Narrative 10/03/2021 2:01 PM CDT For Patients: As a result of the Century Cures Act, medical imaging exams and procedure reports are released immediately into your electronic medical record. You may view this report before your referring provider. If you have questions, please contact your health care provider. INDICATION: Screening for AAA (abdominal aortic aneurysm) COMPARISON: CT 10/28/2013 TECHNIQUE: Paz scale and color Doppler images were acquired of the abdominal aorta and iliac arteries. FINDINGS: Sonographic imaging demonstrates moderate atherosclerotic changes. Proximally, the aorta measures 2.7 x 2.6 cm in diameter, mid 1.8 x 2.0 cm, and distally tapers to a measurement of 2.0 x 1.7 cm. The common iliac arteries are patent and measure 1.1 x 1.2 cm on the right and 1.0 x 1.2 cm in diameter on the left. There are no suspicious periaortic masses. Procedure Note José Greenfield MD - 10/03/2021 For Patients: As a result of the Cures Act, medical imagingexams and procedure reports are released immediately into your electronicmedical record. You may view this report before your referring provider.If you have questions, please contact your health care provider. INDICATION: Screening for AAA (abdominal aortic aneurysm) COMPARISON: CT 10/28/2013 TECHNIQUE: Paz scale and color Doppler images were acquired of the abdominal aortaand iliac arteries. FINDINGS: Sonographic imaging demonstrates moderate atherosclerotic changes.Proximally, the aorta measures 2.7 x 2.6 cm in diameter, mid 1.8 x 2.0 cm,and distally tapers to a measurement of 2.0 x 1.7 cm. The common iliacarteries are patent and measure 1.1 x 1.2 cm on the right and 1.0 x 1.2 cmin diameter on the left. There are no suspicious periaortic masses. IMPRESSION: No evidence of abdominal aortic aneurysm. 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
--- NOTE | 2025-02-10 09:25 | ED.GENADULT ---
HPI - General Adult General Date Seen: 02/10/25 Chief complaint: Neuro Symptoms/Altered Deficit Stated complaint: thinks he may have had a stroke Time Seen by Provider: 02/10/25 09:23 History of Present Illness HPI narrative: This is a very pleasant 69-year-old gentleman who reports a past medical history of elevated BMI, high blood pressure (on Cardura), dyslipidemia (a statin) and a distant history of bladder cancer (cancer free for 18 years) who presents to the ER today with slurred speech and left facial droop. He is concerned he is having a stroke. He was healthy and normal this morning when he got up and shortly after 7:00 a.m. when his left for work he noted that he got a little bit nauseous and almost threw up and then had some slurred speech. He would numb noted the slurred speech except for sometimes he talks to himself out loud. No other symptoms. Vision is normal. No headache. No neck pain. No chest pain or palpitations. No numbness or weakness in his arms or legs. No trouble walking. No head injury. He does not take any aspirin or other blood thinners. No history of AFib. He recently had a coronary CT scan that did have a slightly elevated calcium score but nothing dangerous. He has no known history of stents or heart attacks. No previous strokes. Related Data Home Medications ?Medication ?Instructions ?Recorded ?Confirmed atorvastatin 20 mg tablet (Lipitor) 20 mg PO QPM 12/13/21 01/09/23 doxazosin 4 mg tablet (Cardura) 4 mg PO DAILY 12/13/21 01/09/23 epinephrine 0.3 mg/0.3 mL 0.3 ml IM Q5-15M PRN 12/13/21 01/09/23 injection, auto-injector (EpiPen) catheter 14 Fr-16 (Self-Cath) 01/09/23 01/09/23 folic acid 1 mg tablet 1 mg PO DAILY 01/09/23 01/09/23 omeprazole 40 mg capsule,delayed 40 mg PO DAILY 01/09/23 01/09/23 release Previous Rx's ?Medication ?Instructions ?Recorded cephalexin 500 mg capsule 500 mg PO QID #28 caps 01/09/23 furosemide 20 mg tablet 20 mg PO DAILY #4 tabs 01/09/23 Allergies Allergy/AdvReac Type Severity Reaction Status Date / Time bee venom protein (honey bee) Allergy Severe Difficulty Verified 01/09/23 16:28 Breathing ciprofloxacin Allergy Unknown Verified 01/09/23 16:28 [facility] Medical History Other urethral stricture, male, unspecified site ?N35.819 - Other urethral stricture, male, unspecified site (ICD-10) Urethral stricture ?N35.919 - Unspecified urethral stricture, male, unspecified site (ICD-10) Bladder cancer ?C67.9 - Malignant neoplasm of bladder, unspecified (ICD-10) Essential (primary) hypertension ?I10 - Essential (primary) hypertension (ICD-10) BPH (benign prostatic hyperplasia) ?N40.0 - Benign prostatic hyperplasia without lower urinary tract symptoms (ICD-10) Surgical History S/P wisdom tooth extraction ?Z98.818 - Other dental procedure status (ICD-10) S/P tonsillectomy ?Z90.89 - Acquired absence of other organs (ICD-10) Social History Smoking Status: Former smoker What tobacco products do you use: cigarettes Smoking quit date/years: <= 15 years ago Do you use any of these nicotine containing products: None and Vaping Products Second hand tobacco smoke exposure: No How often do you have a drink containing alcohol: monthly or less Alcohol type: beer, wine and hard liquor How many standard drinks containing alcohol do you have on a typical day: 3 or 4 How often do you have six or more drinks on one occasion: Less than monthly AUDIT-C Alcohol total score: 3 Non-prescribed substance use: marijuana (any form) Non-prescribed substance use details: THC Gummy every night to help sleep Caffeine: Yes (rarely) Exam Narrative: Exam Narrative: Constitutional: Appears well-developed and well-nourished. Alert. Conversant. Non toxic. I met the patient in the ER hallway and accompanied with him to his room in ER bed 6 to our initial exam and stroke team activation HENT: Head: Atraumatic. Nose: Nose normal. Mouth/Throat: Oral mucosa is clear and moist. no trismus. Pharynx normal. Tonsils symmetric. No tonsillar enlargement, erythema, or exudate. Eyes: Conjunctivae normal. EOM normal. Pupils equal, round, and reactive to light. No scleral icterus. Neck: Normal range of motion. Neck supple. No tracheal deviation present. Cardiovascular: Normal rate, regular rhythm. No gallop. No friction rub. No murmur heard. Symmetric radial artery pulses Pulmonary/Chest: Effort normal. No stridor. No respiratory distress. No wheezes. No rales. No rhonchi . No tenderness. Abdominal: Soft. Bowel sounds normal. No distension. No mass. No tenderness. No rebound. No guarding. Musculoskeletal: RUE: Normal range of motion. No tenderness. No deformity LUE: Normal range of motion. No tenderness. No deformity RLE: Normal range of motion. No edema. No tenderness. No deformity LLE: Normal range of motion. No edema. No tenderness. No deformity Lymph: No cervical adenopathy. Mental status normal. Attention normal. Alert and oriented x3. GCS 15. Memory normal. Speech somewhat slow and at times stumbling with words, slightly slurred.. Cognition normal. Cranial Nerves intact II-XII except for subtle left facial droop. Tongue protrudes slightly to the left. I did not formally test gag or visual acuity. EOMI. Palate elevates symmetrically Strength: 5/5 trapezius on the right and left 5/5 deltoid on the right and left 5/5 biceps on the right and left 5/5 triceps on the right and left 5/5 lead inspector on the right and left 5/5 thumb opposition on the right and left 5/5 finger abduction on the right and left 5/5 hip flexors (L3) on the right and left 5/5 quadriceps (L4) on the right and left 5/5 tibialis anterior on the right and left 5/5 EHL (L5) on the right and left 5/5 gastrocnemius (S1) on the right and left 5/5 hamstring on the right and left Sensation intact to light touch in both upper extremities (C4-T1) Sensation intact to light touch in Both lower extremities (L4-S1). Finger to nose and coordination normal. Gait normal. Arrival NIH stroke scale= 2 Skin: Skin is warm and dry. No rash noted. No pallor. Normal capillary refill. Psychiatric: Normal mood. Normal affect. Const: Vital Signs, click to edit/add: Vital Signs - 24 hr 02/10/25 09:13 02/10/25 09:45 02/10/25 09:46 Temperature 98.1 F Pulse Rate Pulse Rate [Pulse Oximeter] 105 H Respiratory Rate 20 14 28 H Blood Pressure 177/103 H Blood Pressure [Ri ght Upper Arm] 164/94 H Pulse Oximetry 95 Oxygen Delivery Me thod Room Air 02/10/25 10:00 02/10/25 10:02 02/10/25 10:02 Temperature Pulse Rate 93 95 95 Pulse Rate [Pulse Oximeter] Respiratory Rate 6 L 8 L Blood Pressure 159/95 H 159/95 H Blood Pressure [Ri ght Upper Arm] Pulse Oximetry 96 94 94 Oxygen Delivery Me thod 02/10/25 10:15 02/10/25 10:17 02/10/25 10:18 Temperature Pulse Rate Pulse Rate [Pulse Oximeter] Respiratory Rate 30 H 25 H 24 Blood Pressure 157/100 H Blood Pressure [Ri ght Upper Arm] Pulse Oximetry Oxygen Delivery Me thod 02/10/25 10:30 02/10/25 10:32 Temperature Pulse Rate 103 H 100 Pulse Rate [Pulse Oximeter] Respiratory Rate 26 H 27 H Blood Pressure 164/90 H Blood Pressure [Ri ght Upper Arm] Pulse Oximetry 95 96 Oxygen Delivery Me thod Course Course ED Course: Patient seen in triage and brought immediately back to ER bed 6 work code stroke was activated. I did my initial NIH stroke scale an evaluation in ER bed 6 and the patient was taken expeditiously see for CT imaging. Subsequently with mono the patient was drinking alcohol this morning-he reports a few oz of wine. Discussed with stroke neurology, Dr. Luciano. He reviewed the imaging and 5 finds no acute large vessel occlusion that would require transfer no evidence for intracranial hemorrhage. Dr. Lira today remote tele stroke evaluation and says that there is no indication for thrombolytics. Unclear if this is truly a stroke or possibly alcohol intoxication. Even if it is a stroke, facial droop is resolving and slurred speech is mild. At this point the risk of hemorrhage from thrombolytics would outweigh the benefit. Dr. Cai recommends MRI, full-dose aspirin today followed by 81 mg aspirin thereafter and admission for MRI and stroke workup. Discussed with CRL, Dr. Sunshine at 9:50 a.m.. He confirms that the head CT scan is negative for anything acute and the CT angiogram shows no large vessel occlusion or significant atherosclerotic disease. Discussed with our hospitalist, apple a bus at 9:56 a.m.. She agrees to admit and will follow-up on the MRI results. At this point stroke symptoms are still present with some slurred speech but facial droop seems to be resolving. Will continue to monitor but for now unless symptoms substantially deteriorate, patient is more likely to be harmed then to be benefited by thrombolytics. Discussed with hospitalist, Corrie Mack, who agrees to admit for stroke workup. Recheck-updated patient and family about CT results. Overall it seems like his left facial droop is slightly better than arrival. Speech is still somewhat dysarthric. No other evolving neurologic symptoms. NIH stroke scale still too. Not worsening. Vital Signs Vital signs: Initial Vital Signs Temperature 98.1 F 02/10/25 09:13 Temperature Source Temporal Artery Scan 02/10/25 09:13 Pulse Rate 105 H 02/10/25 09:13 Respiratory Rate 20 02/10/25 09:13 Blood Pressure 164/94 H 02/10/25 09:13 Blood Pressure Mean 117 H 02/10/25 09:13 Blood Pressure Position Sitting 02/10/25 09:13 Pulse Oximetry 95 02/10/25 09:13 Oxygen Delivery Method Room Air 02/10/25 09:13 Vital Signs Temperature 98.1 F 02/10/25 09:13 Pulse Rate 105 H 02/10/25 09:13 Respiratory Rate 20 02/10/25 09:13 Blood Pressure 164/94 H 02/10/25 09:13 Pulse Oximetry 95 02/10/25 09:13 Oxygen Delivery Method Room Air 02/10/25 09:13 Temperature 98.1 F 02/10/25 09:13 Pulse Rate 100 02/10/25 10:32 Respiratory Rate 27 H 02/10/25 10:32 Blood Pressure 164/90 H 02/10/25 10:32 Pulse Oximetry 96 02/10/25 10:32 Oxygen Delivery Method Room Air 02/10/25 09:13 Medications Administered Medications: Discontinued Medications Generic Name Dose Route Start Last Admin Trade Name Freq PRN Reason Stop Dose Admin Aspirin 325 mg 02/10/25 09:50 02/10/25 10:08 Aspirin Ec 325 Mg Tablet PO 02/10/25 09:51 325 mg ONCE ONE Administration Medical Decision Making [facility] Narrative Medical decision making narrative: Very pleasant 69-year-old gentleman with a past medical history of hypertension, dyslipidemia, elevated BMI but no known history of cerebrovascular disease or strokes. He presents to the ER today with stroke symptoms including dysarthria and subtle left facial droop. Symptoms started shortly after 7:00 a.m. this morning. Upon presentation he was within the time window for thrombolytic. We did do a stroke team activation and sent the patient for stat CT scans. Head CT is negative for bleed but does show an old (previously unknown) occipital infarct. CTA does not show any significant atherosclerotic disease and does not show any large vessel occlusion. Consultation with Stroke Neurology was simultaneously obtained and after evaluation, stroke Neurology advises against thrombolytics given the very minor symptoms. Confounding the patient's presentation is that he was consuming some alcohol this morning. Ultimately alcohol level came back at 0.02-consistent with his reported intake of 3-4 oz of wine. Alcohol level is not high enough to be causing his slurred speech. No other substances of abuse. Ultimately, at this point we feel that the risk of hemorrhagic transformation or intracranial hemorrhage or serious bleeding associated with thrombolytics would outweigh the benefit since overall symptoms are removed and an 8 shock scale is only 2. Although patient does have some slurred speech he is able to communicate. In terms of evaluation for cause of stroke EKG so far shows sinus rhythm. No definite ischemia. Troponin is detectable but normal and he is not having any chest pain. Electrolytes normal. Blood pressure slightly elevated but that may be due to acute stress /anxiety. In any case we would typically allow permissive hypertension in the setting of a potential acute ischemic stroke. Discussed plan of care for admission. Patient and family agree. Patient has already updated his by phone. Lab Data Labs: Lab Results 02/10/25 02/10/25 Range/Units 09:20 09: WBC 6.57 (4.50-11.00) K/uL RBC 4.50 (4.30-5.90) m/uL Hgb 16.1 (13.5-17.5) gm/dL Hct 46.0 (37.0-53.0) % MCV 102 H (80-100) fL MCH 36 H (26-34) pg MCHC 35 (32-36) gm/dL RDW Coeff of Vivi 13.5 (11.5-15.5) % Plt Count 106 L (140-440) K/uL Neut % (Auto) 74.4 H (42.0-72.0) % Lymph % (Auto) 11.4 L (20-44) % [place] % (Auto) 12.5 H (0.0-11.0) % Eos % (Auto) 0.9 (0.0-7.0) % Baso % (Auto) 0.2 (0.0-3.0) % Neut # (Auto) 4.90 (1.7-7.0) K/uL Lymph # (Auto) 0.70 L (0.90-2.90) K/uL [place] # (Auto) 0.80 (0.00-0.90) K/UL Eos # (Auto) 0.06 (0.00-0.50) K/uL Baso # (Auto) 0.01 (0.00-0.30) K/uL Abs Immat Gran (auto) 0.04 (0.00-0.30) K/uL Imm/Tot Granulo (auto) 0.6 % INR 1.04 (0.91-1.10) Sodium 135 (135-149) mmol/L Potassium 3.9 (3.6-5.1) mmol/L Chloride 102 (96-114) mmol/L Carbon Dioxide 27 (20-32) mmol/L Anion Gap 6 L (7-15) mEq/L BUN 5 L (7-30) mg/dL Creatinine 0.9 (0.5-1.5) mg/dL Estimated Creat Clear 68.74 Estimated GFR 92 ml/min Glucose 116 H (60-115) mg/dL Calcium 8.7 (8.4-10.6) mg/dL Troponin I 0.04 (0.01-0.04) ng/mL Ethyl Alcohol 0.02 (0.01-0.03) % POC Glucose 122 H (60-115) mg/dl ECG Data Attestation: I personally reviewed and interpreted this ECG as follows: Interpretation: Normal sinus rhythm with sinus arrhythmia Rate: Rate 79 NM: NM interval [address] segment/T wave: No ST segment elevation or depression QTc: 419 Discharge Plan Discharge Clinical Impression: Stroke Patient Disposition: Admitted As Observation
[2025-02-10 09:26] LABS: Glucose, Point-of-Care* 122 mg/dl (60-115)
[2025-02-10 09:40] LABS: Hematocrit* 46.0 % (37.0-53.0); Hemoglobin* 16.1 gm/dL (13.5-17.5); Immature Granulocytes Abs Auto 0.04 K/uL (0.00-0.30); Immature Granulocytes Pct Auto 0.6 %; Lymphocytes Absolute Auto 0.70 K/uL (0.90-2.90); Mean Corpuscular HGB Conc 35 gm/dL (32-36); Mean Corpuscular Hemoglobin 36 pg (26-34); Mean Corpuscular Volume 102 fL (80-100); RDW Coefficient of Variation % 13.5 % (11.5-15.5); Red Blood Count* 4.50 m/uL (4.30-5.90); Slide Review Reflex No; White Blood Count* 6.57 K/uL (4.50-11.00)
[2025-02-10 09:46] LABS: Chloride* 102 mmol/L (96-114); Potassium* 3.9 mmol/L (3.6-5.1); Sodium* 135 mmol/L (135-149)
[2025-02-10 09:49] LABS: Anion Gap 6 mEq/L (7-15); Blood Urea Nitrogen* 5 mg/dL (7-30); Calcium* 8.7 mg/dL (8.4-10.6); Carbon Dioxide* 27 mmol/L (20-32); Creatinine* 0.9 mg/dL (0.5-1.5); Est. Creatinine Clearance* 68.74; Estimated Glomerular Filt Rate 92 ml/min; Glucose* 116 mg/dL (60-115)
[2025-02-10 09:50] LABS: INR 1.04 (0.91-1.10); Prothrombin Time 14.4 Seconds
--- NOTE | 2025-02-10 09:51 | CRLHL7_ITS ---
For Patients: As a result of the Cures Act, medical imaging exams and procedure reports are released immediately into your electronic medical record. You may view this report before your referring provider. If you have questions, please contact your health care provider. INDICATION: Stroke, speech changes. TECHNIQUE: Multisequence multiplanar MRI of the brain without the use of intravenous contrast. COMPARISON: Correlated with CT head dated same day 02/10/2025. FINDINGS: Diffusion restriction within the cortex of the right frontal lobe including the precentral gyrus (series 5, image 43) with minimal associated FLAIR hyperintensity. No evidence of hemorrhagic conversion. Scattered foci of T2 prolongation elsewhere within the supratentorial white matter typical of mild chronic small-vessel ischemic changes. 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 Mild diffuse parenchymal volume loss. The ventricles are proportional to the sulci. Flow voids of the larger intracranial arteries are preserved. Normal calvarial bone marrow signal intensity. Bilateral pseudophakia. The paranasal sinuses are predominantly clear. Small jffwi-sptqdxa-vytf-left mastoid effusions are noted. IMPRESSION: : 1. Diffusion restriction within the cortex of the right frontal lobe, including the precentral gyrus, consistent with acute ischemia. 2. No evidence of hemorrhagic transformation. 3. Mild diffuse parenchymal volume loss and chronic small vessel ischemic changes. 4. 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 Findings were discussed with Dr. Bronson on 02/10/2025 at 12:41 p.m.. Dictated by Sam Rodriguez MD @ 02/10/2025 12:43:28 PM (Electronically Signed)
[2025-02-10] MEDS: ASPIRIN EC 325 MG TABLET PO (10:08)
[2025-02-10 10:23] LABS: Ethanol* 0.02 % (0.01-0.03)
--- NOTE | 2025-02-10 13:04 | PM.IMHP1 ---
Assessment and Plan Assessment and plan (1) Stroke: Problem comment: - cortex of right frontal lobe, including precentral gyrus - slurred speech primary symptom - received 325 mg of aspirin in the emergency room on 02/10, start 81mg ASA daily 02/11 - seen by Dr. 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 Status: Acute (3) Alcohol use disorder: Problem comment: - daily ETOH - sequela of thrombocytopenia and macrocytosis with known folate deficiency - last use 01/21 in the morning, will follow on CIWA - no history of withdrawal per patient Status: Acute (4) Hypertension goal BP (blood pressure) < 140/90: Problem comment: - as an outpatient, on Cardura and Lasix daily - HOLDING as of 02/10 Status: Acute (5) Elevated coronary artery calcium score: Problem comment: - had coronary CTA on 02/03 with results below: Calcium Score: Left main = 2.6 Left anterior descending = 12.1 Left circumflex = 89.7 Right coronary artery = 180.4 Total calcium score = 284.8 This places the patient at the 62nd percentile for matched age and gender Status: Acute Plan - per above - sons updated bedside, questions answered Hospitalist- H&P: HPI History of Present Illness Date Seen: 02/10/25 Chief complaint: thinks he may have had a stroke Narrative: Jonnathan Dao is a 69 year old male who presented to the ER this morning for concerns of slurred speech and nausea. He was home alone ( at work) and noted abrupt onset of nausea that resolved. Soon after, he was talking to himself and noted slurred speech. He did not have any vision concerns, he did not have any arm or leg weakness, thought he may have had some left facial droop. He had some wine this morning (typical daily drinker) but amount not c/w these symptoms. ER: - stroke code initiated; reassuring head CT and CTA - seen by Dr. Luciano in the emergency room; thrombolytics not indicated given relatively mild symptoms and risk of hemorrhage - received 325 mg of aspirin an MRI obtained prior to arrival to the floor, which noted a diffusion restriction in the cortex of right frontal lobe including precentral gyrus, consistent with acute ischemia - ETOH level 0.02 Patient admitted for CVA; needs therapy evaluations, TTE, medication management. Histories updated below, Vivi Cruz PCP at [facility]. Review of Systems Status of ROS: Reports: 10 or more systems reviewed and unremarkable except as noted in History and below Medical Decision Making Medical Decision Making Code Status: Full Has patient completed a Health Care Directive: No During This Stay, Who Would You Like To Make Decisions For You In The Event You Are Unable To Make Them For Yourself?: Rhonda [facility] Medical History (Updated 02/10/25 @ 13:50 by Anna Stephenson MD) Elevated coronary artery calcium score ?R93.1 - Abnormal findings on diagnostic imaging of heart and coronary circulation (ICD-10) Alcohol use disorder ?F10.90 - Alcohol use, unspecified, uncomplicated (ICD-10) Thrombocytopenia (06/03/23) ?D69.6 - Thrombocytopenia, unspecified (ICD-10) Hypertension goal BP (blood pressure) < 140/90 (09/04/13) ?I10 - Essential (primary) hypertension (ICD-10) Other urethral stricture, male, unspecified site ?N35.819 - Other urethral stricture, male, unspecified site (ICD-10) Urethral stricture ?N35.919 - Unspecified urethral stricture, male, unspecified site (ICD-10) Bladder cancer ?C67.9 - Malignant neoplasm of bladder, unspecified (ICD-10) Essential (primary) hypertension ?I10 - Essential (primary) hypertension (ICD-10) BPH (benign prostatic hyperplasia) ?N40.0 - Benign prostatic hyperplasia without lower urinary tract symptoms (ICD-10) Surgical History (Updated 02/10/25 @ 13:50 by Anna Stephenson MD) S/P bladder tumor excision with fulguration ?Z98.890 - Other specified postprocedural states (ICD-10) S/P wisdom tooth extraction ?Z98.818 - Other dental procedure status (ICD-10) S/P tonsillectomy ?Z90.89 - Acquired absence of other organs (ICD-10) Social History (Updated 02/10/25 @ 13:11 by Anna Stephenson MD) Narrative: Lives with Rhonda in [place], adult children local. Daily alcohol use, no history of withdrawal. Remote smoking history and remote cocaine use history, none currently. CBD gummies for sleep. Smoking Status: Former smoker What tobacco products do you use: cigarettes Smoking quit date/years: <= 15 years ago Do you use any of these nicotine containing products: None and Vaping Products Second hand tobacco smoke exposure: No How often do you have a drink containing alcohol: monthly or less Alcohol type: beer, wine and hard liquor How many standard drinks containing alcohol do you have on a typical day: 3 or 4 How often do you have six or more drinks on one occasion: Less than monthly AUDIT-C Alcohol total score: 3 Non-prescribed substance use: marijuana (any form) Non-prescribed substance use details: THC Gummy every night to help sleep Caffeine: Yes (rarely) Meds Home Medications and Allergies Home Medications ?Medication ?Instructions ?Recorded ?Confirmed ?Type doxazosin 4 mg tablet (Cardura) 4 mg PO HS 12/13/21 02/10/25 History epinephrine 0.3 mg/0.3 mL 0.3 ml IM Q5-15M PRN 12/13/21 02/10/25 History injection, auto-injector (EpiPen) folic acid 1 mg tablet 1 mg PO DAILY 01/09/23 02/10/25 History omeprazole 40 mg capsule,delayed 40 mg PO DAILY 01/09/23 02/10/25 History release atorvastatin 80 mg tablet 80 mg PO HS 02/10/25 02/10/25 History furosemide 20 mg tablet 10 mg PO DAILY 02/10/25 02/10/25 History Allergies Allergy/AdvReac Type Severity Reaction Status Date / Time bee venom protein (honey bee) Allergy Severe Difficulty Verified 01/09/23 16:28 Breathing ciprofloxacin Allergy Unknown Verified 01/09/23 16:28 Exam Narrative: Exam Narrative: GEN: Alert and oriented, answering questions appropriately and nontoxic HEENT: EOMIs bilaterally, dentition poor without evidence of acute infectious process. Tongue protrudes midline, no facial droop CV: RRR, No concerning murmurs R: LCTA bilaterally without concerning wheezing Ext: wwp, no concerning edema Skin: No concerning skin lesions or rashes on exposed skin Neuro: 5/5 strength in bilateral upper and lower extremities, able to plantar flex and dorsiflex bilaterally, no weakness in intrinsic musculature of hands. Negative asterixis, negative pronator drift. No dysmetria on [id number] testing, although does have a very slight tremor in right hand during this exam. Patient unsure if he has had this before. No resting tremor noted Psych: Appropriate Const: Vital Signs, click to edit/add: Vital Signs - 24 hr 02/10/25 09:13 02/10/25 09:45 02/10/25 09:46 Temperature 98.1 F Pulse Rate Pulse Rate [Pulse Oximeter] 105 H Respiratory Rate 20 14 28 H Blood Pressure 177/103 H Blood Pressure [Ri ght Upper Arm] 164/94 H Pulse Oximetry 95 Oxygen Delivery Me thod Room Air 02/10/25 10:00 02/10/25 10:02 02/10/25 10:02 Temperature Pulse Rate 93 95 95 Pulse Rate [Pulse Oximeter] Respiratory Rate 6 L 8 L Blood Pressure 159/95 H 159/95 H Blood Pressure [Ri ght Upper Arm] Pulse Oximetry 96 94 94 Oxygen Delivery Me thod 02/10/25 10:15 02/10/25 10:17 02/10/25 10:18 Temperature Pulse Rate Pulse Rate [Pulse Oximeter] Respiratory Rate 30 H 25 H 24 Blood Pressure 157/100 H Blood Pressure [Ri ght Upper Arm] Pulse Oximetry Oxygen Delivery Me thod 02/10/25 10:30 02/10/25 10:32 02/10/25 10:33 Temperature Pulse Rate 103 H 100 87 Pulse Rate [Pulse Oximeter] Respiratory Rate 26 H 27 H 23 Blood Pressure 164/90 H Blood Pressure [Ri ght Upper Arm] Pulse Oximetry 95 96 95 Oxygen Delivery Me thod 02/10/25 10:45 02/10/25 10:48 02/10/25 11:00 Temperature Pulse Rate 104 H 105 H 108 H Pulse Rate [Pulse Oximeter] Respiratory Rate 25 H 22 24 Blood Pressure 128/83 Blood Pressure [Ri ght Upper Arm] Pulse Oximetry 95 96 95 Oxygen Delivery Me thod 02/10/25 11:02 02/10/25 11:15 02/10/25 11:17 Temperature Pulse Rate 108 H 109 H 108 H Pulse Rate [Pulse Oximeter] Respiratory Rate 26 H 24 33 H Blood Pressure 158/89 H 139/101 H Blood Pressure [Ri ght Upper Arm] Pulse Oximetry 94 98 97 Oxygen Delivery [facility] 02/10/25 11:30 02/10/25 11:32 Temperature Pulse Rate 113 H 114 H Pulse Rate [Pulse Oximeter] Respiratory Rate 19 28 H Blood Pressure 160/104 H Blood Pressure [Ri ght Upper Arm] Pulse Oximetry 97 97 Oxygen Delivery [facility] Hospitalist - H&P: Result Labs Labs: Short CBC 02/10/25 Range/Units 09:20 WBC 6.57 (4.50-11.00) K/uL Hgb 16.1 (13.5-17.5) gm/dL Hct 46.0 (37.0-53.0) % Plt Count 106 L (140-440) K/uL BMP 02/10/25 09:20 Sodium 135 Potassium 3.9 Chloride 102 Carbon Dioxide 27 BUN 5 L Creatinine 0.9 Glucose 116 H Calcium 8.7 Cardiac Enzymes 02/10/25 Range/Units 09:20 Troponin I 0.04 (0.01-0.04) ng/mL
[2025-02-10] MEDS: THIAMINE 100 MG TABLET PO (14:17)
[2025-02-10 16:15] LABS: Albumin* 4.0 g/dL (3.3-5.0)
[2025-02-10 16:18] LABS: Alanine Aminotransferase* 26 U/L (4-50); Alkaline Phosphatase* 53 U/L (40-150); Aspartate Amino Transferase* 82 U/L (12-35); Bilirubin Direct* 0.5 mg/dL (0.0-0.5); Bilirubin Total* 1.2 mg/dL (0.1-1.5); Total Protein* 6.6 g/dL (6.0-8.3)
[2025-02-10 16:54] LABS: D Dimer Quantitative* < 0.27 ug/ml (0.00-0.50)
--- NOTE | 2025-02-10 18:42 | P.CCN_ITS ---
Subjective Subjective Date Seen: 02/10/25 Interval history: 69-year-old male admitted to the hospital with a stroke causing slurring of speech. No other significant neurologic deficits identified. This evening I was called to see him as his heart rate was 132. Other vital signs were normal. Patient reports feeling fine. He is not aware of his tachycardia. He has no chest pain, abdominal pain, shortness of breath or fever. He does have a history of alcohol use reporting to me that he has 3 or 4 drinks per day. He reports he has never had problems with withdrawal. Objective Objective Data Details: He is alert and appears in no distress. His speech is slightly slurred but otherwise normal. He is oriented to his circumstances and gives fairly good detail of his history. He is not tremulous. Respirations are clear to auscultation. Cardiovascular: S1, S2, regular rate and rhythm. Abdomen is soft without tenderness or mass extremities without edema. Electrocardiogram is normal. Troponin is 0.03. D-dimer is normal. Assessment and Plan Assessment and plan (1) Sinus tachycardia: Problem comment: Patient has sinus tachycardia which has improved with 1 dose of lorazepam. D- dimer is normal. Troponin is borderline elevated but stable. Electrocardiogram shows no significant changes other than sinus tachycardia. I suspect the sinus tachycardia is a manifestation of alcohol withdrawal. Continue to monitor. Status: Acute
[2025-02-10] MEDS: PHENobarbitaL 130 MG in 0.9 % SODIUM CHLORIDE 100 ml 100 ML 204 MG IVPB (19:16)
--- NOTE | 2025-02-10 19:26 | PC.NURSE ---
End of Shift: Patient pleasant and cooperative, A&O. Tachycardic this shift, MD aware, EKG complete showing sinus tachycardia. All other VSS. SpO2 maintained above 90% on RA. Denies pain this shift. Gave 1 time order of Ativan PER MD due to patient's symptoms. SBA. Regular diet. ?
[2025-02-10] MEDS: SODIUM CHLORIDE 0.9 % (FLUSH) 10 ML SYRINGE 5 ML IVF (21:23)
[2025-02-10] MEDS: ATORVASTATIN CALCIUM 40 MG TABLET 80 MG PO (21:23)
--- NOTE | 2025-02-10 23:07 | PC.NURSE ---
End of Shift (): Patient pleasant and cooperative. Afebrile. Denies pain. CIWA 2,0. Up with SBA
[2025-02-11 03:21] VITALS: BP 151/85; PULSE 71; RESP 18; TEMP 36.8; O2SAT 98
[2025-02-11] MEDS: OMEPRAZOLE 20 MG CAPSULE DR 40 MG PO (06:16)
[2025-02-11 06:37] LABS: Hematocrit* 42.7 % (37.0-53.0); Hemoglobin* 14.6 gm/dL (13.5-17.5); Immature Granulocytes Abs Auto 0.01 K/uL (0.00-0.30); Immature Granulocytes Pct Auto 0.2 %; Lymphocytes Absolute Auto 0.96 K/uL (0.90-2.90); Mean Corpuscular HGB Conc 34 gm/dL (32-36); Mean Corpuscular Hemoglobin 36 pg (26-34); Mean Corpuscular Volume 105 fL (80-100); RDW Coefficient of Variation % 13.7 % (11.5-15.5); Red Blood Count* 4.08 m/uL (4.30-5.90); White Blood Count* 4.66 K/uL (4.50-11.00)
[2025-02-11 06:40] LABS: Slide Review Reflex No
[2025-02-11 06:47] LABS: Albumin* 3.3 g/dL (3.3-5.0); Chloride* 102 mmol/L (96-114); Potassium* 3.8 mmol/L (3.6-5.1); Sodium* 136 mmol/L (135-149)
[2025-02-11 06:50] LABS: Alanine Aminotransferase* 22 U/L (4-50); Alkaline Phosphatase* 48 U/L (40-150); Anion Gap 4 mEq/L (7-15); Aspartate Amino Transferase* 48 U/L (12-35); Bilirubin Total* 1.4 mg/dL (0.1-1.5); Blood Urea Nitrogen* 12 mg/dL (7-30); Calcium* 8.1 mg/dL (8.4-10.6); Carbon Dioxide* 30 mmol/L (20-32); Creatinine* 0.9 mg/dL (0.5-1.5); Est. Creatinine Clearance* 68.74; Estimated Glomerular Filt Rate 92 ml/min; Glucose* 111 mg/dL (60-115); Total Protein* 5.7 g/dL (6.0-8.3)
--- NOTE | 2025-02-11 06:53 | PC.NURSE ---
End of shift ([id number]): Pt pleasant, alert and oriented.?CIWAS 0 throughout shift. VSS. Tele?read sinus arrythmia. Facial droop and slurred speech minimal. Up with SBA. Regular diet. Pt in bed, appears to be resting, call light within reach.?
[2025-02-11] MEDS: ASPIRIN 81 MG TAB.CHEW PO (09:41)
[2025-02-11] MEDS: FOLIC ACID 1 MG TABLET PO (09:42)
[2025-02-11] MEDS: MULTIVITAMIN/MINERALS 1 TABLET 1 TAB PO (09:42)
[2025-02-11] MEDS: SODIUM CHLORIDE 0.9 % (FLUSH) 10 ML SYRINGE 5 ML IVF (09:44)
[2025-02-11 09:47] VITALS: BP 156/86; PULSE 81; RESP 22; TEMP 36.9; O2SAT 96
--- NOTE | 2025-02-11 10:16 | P.DS_ITS ---
DS: Providers Provider Date Seen: 02/11/25 Date of admission: 02/10/25 13:04 Primary care physician: Vivi Cruz PA-C Admitting Clinician: Anna Stephenson MD Consults: PT, OT, Nutrition, Speech Therapy, Stroke Neurology Attending Physician on discharge: Anna Stephenson MD Date of Discharge: 02/11/25 DS: Diagnosis Discharge Diagnosis (1) Sinus tachycardia: Status: Acute Problem details: - noted evening of 02/10/25, no associated chest pain or dyspnea - D-dimer was normal, troponin borderline elevated but stable, Electrocardiogram showed no significant changes other than sinus tachycardia - presumed 2/2 mild ETOH withdrawal, improved after 1 dose of Lorazepam + Phenobarbital and did not recur (2) Elevated coronary artery calcium score: Status: Acute Problem details: - had coronary CTA on 02/03 with results below: Calcium Score: Left main = 2.6 Left anterior descending = 12.1 Left circumflex = 89.7 Right coronary artery = 180.4 Total calcium score = 284.8 This places the patient at the 62nd percentile for matched age and gender (3) Alcohol use disorder: Status: Acute Problem details: - daily ETOH - sequela of thrombocytopenia and macrocytosis with known folate deficiency - last use 01/21 in the morning, will follow on [facility] - no history of withdrawal per patient (+ tachycardia 02/10, resolved after Lorazepam and Phenobarbital x1) (4) Thrombocytopenia: Status: Acute Problem details: - baseline platelets 100-128 per [facility] Chart review - Workup with hematology in 2022: 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, engine monitor, permissive HTN - recent LDL of 72, on statin - A1c 5.5 DS: Summary Hospital Course Hospital Course: Jonnathan was admitted to the hospital on 02/10/2025 for CVA; presented to the ER with slurred speech his primary symptom. MRI revealed acute ischemic infarct in the right frontal lobe and pre central gyrus. Seen by Stroke Neurology during stay. Recommendations from stroke neurology's note below. Patient seen by therapy teams and outpatient follow-up recommended. No abnormal heart rhythms noted on telemetry during stay; discharging home on Zio patch. Patient was appropriate for inpatient stay given acute CVA as admitting diagnosis; ultimately, his CVA deficits did not progress and he did not require a lengthy hospital stay for medical management of symptoms. Jonnathan is discharging home with family and close PCP f/u on 02/11/25. Stroke Neurology's discussion and recommendation: Discussion: Patient presented for evaluation of left facial droop and dysarthria. CT head was negative for acute abnormalities. CTA head and neck were negative for LVO. He was not a candidate for TNK as the symptoms were very mild and improving. Patient was given ASA 325 mg one-time and started on ASA 81 mg daily. A TTE was completed and showed an EF of 50 to 60%, no significant valve disease, thrombus, or shunting. MRI brain revealed an acute ischemic infarct in the right frontal lobe and precentral gyrus. Stroke etiology is ESUS. Recommend patient continue ASA 81 mg and atorvastatin 80 mg daily and discharge with a 28-day Zio patch for long-term arrhythmia monitoring. ? Recommendations at discharge: * - Antithrombotic Plan: Continue ASA 81 mg daily * - Blood Pressure: Slowly work toward a goal of normotension avoiding precipitous drops in blood pressure * - Extended Outpatient Cardiac Monitoring: External, 28 days, if negative proceed with LINQ if outpatient monitoring finds afib/flutter, plan is discussed starting anticoagulation * - Intensive Statin Therapy Recommendations: Yes, continue atorvastatin 80 mg daily * - Sleep Apnea: Follow-up with PCP if indicated * - Additional Workup or Follow Up: Clinic to follow-up on Zio patch results * - Rehabilitation Interventions as Indicated * - Exercise: Daily aerobic activity > 30 minutes as tolerated * - Prevention Strategies as Above * Outpatient Clinic Follow Up: Please place an amb consult to neurology for patient to follow up within 6-8 weeks at our [facility] for stroke follow-up Status at Discharge Overall status at discharge: patient is progressing back to baseline Time Spent with Patient Time attestation: Total time spent providing and/or coordinating discharge services: Time spent: Greater than 30 minutes Specific discharge activities: medication reconciliation, collaboration with mul tidisciplinary team, including stroke neurology Exam Narrative: Exam Narrative: GEN: Alert and oriented, answering questions appropriately. Sitting comfortably in bedside chair, eating breakfast without evidence of aspiration HEENT: Dentition poor without evidence of acute infectious process. 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 Psych: Appropriate Const: Vital Signs, click to edit/add: Vital Signs - 24 hr 02/10/25 10:17 02/10/25 10:18 02/10/25 10:30 Temperature Pulse Rate 103 H Pulse Rate [Pulse Oximeter] Respiratory Rate 25 H 24 26 H Blood Pressure 157/100 H Blood Pressure [Ri ght Arm] Pulse Oximetry 95 [facility] 02/10/25 10:32 02/10/25 10:33 02/10/25 10:45 Temperature Pulse Rate 100 87 104 H Pulse Rate [Pulse Oximeter] Respiratory Rate 27 H 23 25 H Blood Pressure 164/90 H Blood Pressure [Ri ght Arm] Pulse Oximetry 96 95 95 [facility] 02/10/25 10:48 02/10/25 11:00 02/10/25 11:02 Temperature Pulse Rate 105 H 108 H 108 H Pulse Rate [Pulse Oximeter] Respiratory Rate 22 24 26 H Blood Pressure 128/83 158/89 H Blood Pressure [Ri ght Arm] Pulse Oximetry 96 95 94 [facility] 02/10/25 11:15 02/10/25 11:17 02/10/25 11:30 Temperature Pulse Rate 109 H 108 H 113 H Pulse Rate [Pulse Oximeter] Respiratory Rate 24 33 H 19 Blood Pressure 139/101 H Blood Pressure [Ri ght Arm] Pulse Oximetry 98 97 97 [facility] 02/10/25 11:32 02/10/25 12:21 02/10/25 15:00 Temperature 98.3 F Pulse Rate 114 H 120 H Pulse Rate [Pulse Oximeter] 104 H Respiratory Rate 28 H 20 Blood Pressure 160/104 H Blood Pressure [Ri ght Arm] 150/94 H Pulse Oximetry 97 95 Oxygen Delivery Me thod Room Air 02/10/25 15:00 02/10/25 15:50 02/10/25 15:51 Temperature 98.8 F 98.3 F Pulse Rate Pulse Rate [Pulse Oximeter] 131 H 131 H 131 H Respiratory Rate 20 18 20 Blood Pressure Blood Pressure [Ri ght Arm] 168/86 H 168/86 H Pulse Oximetry 94 94 Oxygen Delivery Me thod Room Air Room Air 02/10/25 19:00 02/10/25 21:00 02/10/25 23:00 Temperature 98.7 F 98.8 F Pulse Rate 86 Pulse Rate [Pulse Oximeter] 85 103 H Respiratory Rate 16 16 Blood Pressure Blood Pressure [Ri ght Arm] 153/82 H 157/71 H Pulse Oximetry 95 95 Oxygen Delivery Me thod Room Air Room Air 02/10/25 23:00 02/10/25 23:32 02/11/25 03:21 Temperature 98.4 F 98.2 F Pulse Rate Pulse Rate [Pulse Oximeter] 67 96 71 Respiratory Rate 18 18 18 Blood Pressure Blood Pressure [Ri ght Arm] 133/76 151/85 H Pulse Oximetry 94 98 Oxygen Delivery Me thod Room Air Room Air 02/11/25 09:47 02/11/25 09:47 Temperature 98.5 F 98.5 F Pulse Rate Pulse Rate [Pulse Oximeter] 81 81 Respiratory Rate 22 22 Blood Pressure Blood Pressure [Ri ght Arm] 156/86 H 156/86 H Pulse Oximetry 96 96 Oxygen Delivery Me thod Room Air Room Air DS: Data Data Completed and Pending Labs on day of discharge: Labs from last 24 hours 02/11/25 02/10/25 02/10/25 06:22 17:47 15:52 WBC 4.66 RBC 4.08 L Hgb 14.6 Hct 42.7 MCV 105 H MCH 36 H MCHC 34 RDW Coeff of Vivi 13.7 Plt Count 95 L Neut % (Auto) 60.7 Lymph % (Auto) 20.6 [place] % (Auto) 17.2 H Eos % (Auto) 1.1 Baso % (Auto) 0.2 Neut # (Auto) 2.83 Lymph # (Auto) 0.96 [place] # (Auto) 0.80 Eos # (Auto) 0.05 Baso # (Auto) 0.01 Abs Immat Gran (auto) 0.01 Imm/Tot Granulo (auto) 0.2 D-Dimer Quant (PE/DVT) Sodium 136 Potassium 3.8 Chloride 102 Carbon Dioxide 30 Anion Gap 4 L BUN 12 Creatinine 0.9 Estimated Creat Clear 68.74 Estimated GFR 92 Glucose 111 Hemoglobin A1c Calcium 8.1 L Magnesium 2.0 Total Bilirubin 1.4 Direct Bilirubin AST 48 H ALT 22 Alkaline Phosphatase 48 Troponin I 0.03 Total Protein 5.7 L Albumin 3.3 TSH Ethyl Alcohol Lab Acknowledgement Test Added 02/10/25 02/10/25 02/10/25 15:48 12:21 09:20 WBC RBC Hgb Hct MCV MCH MCHC RDW Coeff of Vivi Plt Count Neut % (Auto) Lymph % (Auto) [place] % (Auto) Eos % (Auto) Baso % (Auto) Neut # (Auto) Lymph # (Auto) [place] # (Auto) Eos # (Auto) Baso # (Auto) Abs Immat Gran (auto) Imm/Tot Granulo (auto) D-Dimer Quant (PE/DVT) < 0.27 Sodium Potassium Chloride Carbon Dioxide Anion Gap BUN Creatinine Estimated Creat Clear Estimated GFR Glucose Hemoglobin A1c 5.5 Calcium Magnesium 1.9 Total Bilirubin 1.2 Direct Bilirubin 0.5 AST 82 H ALT 26 Alkaline Phosphatase 53 Troponin I Total Protein 6.6 Albumin 4.0 TSH 1.070 Ethyl Alcohol 0.02 Lab Acknowledgement Test Added Test Added Discharge Plan Discharge Disposition: Home, Self-Care Date of Admission: 02/10/25 13:04 Attending Provider on Discharge: Anna Stephenson Consulting Providers: Ancelmo Mcfadden Primary Care Provider: Vivi Cruz Condition: Stable Anticipated Discharge Date/Time: 02/11/25 10:16 Discharge Medications: New aspirin [Children's Aspirin] 81 mg Tablet,Chewable 81 mg PO DAILY Qty: 20 0RF Continued omeprazole 40 mg capsule,delayed release(DR/EC) 40 mg PO DAILY folic acid 1 mg tablet 1 mg PO DAILY atorvastatin 80 mg tablet 80 mg PO HS furosemide 20 mg tablet 10 mg PO DAILY doxazosin [Cardura] 4 mg tablet 4 mg PO HS epinephrine [EpiPen] 0.3 mg/0.3 mL auto-injector 0.3 ml IM Q5-15M PRN Rx Instructions: do not exceed 3 doses per episode Discharge Orders: Discharge Order (Routine); Ordered 02/11/25 Ordered By: Anna Stephenson Patient Education: Aspirin (By mouth), Alcohol Dependence (DC), Zio (Home Heart Monitor) Additional Instructions: Buy OTC Aspirin (81mg) and take this daily to help prevent stroke. STAY on your Atorvastatin 80mg daily, in addition to the rest of your home medications. You'll wear a heart monitor for 2 weeks to make sure you aren't having any abnormal heart rhythms. The best thing you can do for your overall health is to quit drinking alcohol. Activity Level: Activity as Tolerated and No strenuous activity Follow Up Appointments: Vivi Cruz PA-C [Primary Care Provider, Family Practice] - 02/16/25 11:35 am Referral Note: [facility] for hospital follow-up. Forms: Patient Belongings, MyHealth Info Instructions
[2025-02-11 10:52] VITALS: BMI 35.4
--- NOTE | 2025-02-11 12:37 | PC.NURSE ---
Discharge: Patient pleasant and cooperative. Patient vitally stable, lungs clear/diminished, BS WNL, IV removed, catheter intact. Patient's neuros are all intact besides slurred speech. Patient denies pain, tolerating regular diet, urinating well, and had 1 BM. Patient is independent. Patient's was given Zio patch education and it was applied at 1202 with green light blinking. Patient signed belongings sheet and discharge from, and no further questions regarding discharge education or Zio patch. Patient left the floor by wheelchair to home at 1207.
== END 2025-02-11 12:07 | disposition home or self-care (01) | DRG 65 ==
LOC: ED 11:26 → MEDSURG 11:41
PROVIDERS: Family Medicine; Admitting Provider Family Medicine; Emergency Provider Emergency Medicine; PCP Student in an Organized Health Care Education/Training Program; Visit Provider Family Medicine
DX: I63.9 Cerebral infarction, unspecified (principal); F10.939 Alcohol use, unspecified with withdrawal, unspecified; R00.0 Tachycardia, unspecified; R47.81 Slurred speech; R29.810 Facial weakness; R29.702 NIHSS score 2; R40.2412 Glasgow coma scale score 13-15, at arrival to emergency department; D69.6 Thrombocytopenia, unspecified; D52.9 Folate deficiency anemia, unspecified; R93.1 Abnormal findings on diagnostic imaging of heart and coronary circulation; Y90.1 Blood alcohol level of 20-39 mg/100 ml; I10 Essential (primary) hypertension; Z87.891 Personal history of nicotine dependence
CPT/HCPCS: 36415; 70450; 70496; 70498; 70551; 80048; 80053; 80076; 82077; 82947; 83036; 83735; 84443; 84484; 85025; 85379; 85610; 92522; 93005; 93246; 93306; 97112; 97161; 97165; 99284; 99285; G0427; A9153; A9270; J2060; J2560; Q9967

== ENCOUNTER 2025-03-20 11:00 | Outpatient (RCR) | payer MEDICARE, BC, SELFPAY | END 2025-03-30 13:20 | disposition home or self-care (01) | PROVIDERS: PCP Student in an Organized Health Care Education/Training Program; Visit Provider Student in an Organized Health Care Education/Training Program | DX: I63.9 Cerebral infarction, unspecified (principal); I69.322 Dysarthria following cerebral infarction; Z51.89 Encounter for other specified aftercare | CPT/HCPCS: 92507; 92522 ==